=== PATIENT | female | born 1955 | race African-American/Black ===

== ENCOUNTER 2016-11-09 05:44 | Inpatient (IN) | payer MEDICARE ==
[~2016-11-09] VITALS: Ht 172.7 cm; Wt 80.0 kg
[2016-11-09] VITALS (16 sets, daily range): BP systolic 18–178; BP diastolic 68–90; Ht 172.7 cm; Wt 80.0 kg
[~2016-11-09 05:44] MED LIST: ACETAMINOPHEN500 M1 PO; CIPRO500 MG PO; LANTUS SOL100 UNIT/1 SQ; LISINOPRIL10 MG PO; NEURONTIN600 MG PO; NORCO 5/325 TAB1 TA1 PO; NOVOLIN R100 U/ML SC; ZOCOR20 MG PO; eye drops
[2016-11-09 06:18] LABS: HEMATOCRIT 37.3 % (36.0-48.0); HEMOGLOBIN 11.2 g/dL (12-16); MCH 27.9 pg (26.0-34.0); MCV 92.8 fL (80.0-100.0); MEAN PLATELET VOLUME 11.9 fL (7.4-10.4); PLATELET COUNT 266 10x3/uL (130-400); RBC 4.02 10x6/uL (4.00-5.40); WBC 28.2 10x3/uL (4.8-10.8)
[2016-11-09 06:34] LABS: ANION GAP 40.9 mmol/L (8-16); BILIRUBIN - TOTAL 0.5 mg/dL (0.2-1.3); CREATININE - SERUM 2.6 mg/dL (0.6-1.3); POTASSIUM - SERUM 4.9 mmol/L (3.5-5.1); PROTEIN - SERUM 6.8 g/dL (6.4-8.2)
[2016-11-09 06:38] LABS: LYMPHOCYTES 8 % (15-50); MONOCYTES 2 % (2-11); NEUTROPHILS 74 % (40-80); PLATELET ESTIMATE NORMAL
[2016-11-09 07:20] LABS: APPEARANCE CLOUDY (CLEAR); BILIRUBIN NEGATIVE (NEGATIVE); COLOR STRAW (YELLOW); GLUCOSE 1000 mg/dL (NEGATIVE); KETONE LARGE mg/dL (NEGATIVE); LEUKOCYTE ESTERASE NEGATIVE (NEGATIVE); NITRITE NEGATIVE (NEGATIVE); PROTEIN 2+ mg/dL (NEGATIVE); SPECIFIC GRAVITY 1.015 (1.005-1.020); UROBILINOGEN NORMAL (NORMAL)
[2016-11-09 07:22] LABS: BACTERIA MODERATE /hpf (NONE SEEN); EPITHELIAL CELLS 0-5 /hpf (0-5); RED CELLS - URINE 0-5 /hpf (0-5); UDS - AMPHET NEGATIVE QUAL (NEGATIVE); UDS - BARB NEGATIVE QUAL (NEGATIVE); UDS - BENZO NEGATIVE QUAL (NEGATIVE); UDS - COCAINE NEGATIVE QUAL (NEGATIVE); UDS - METH NEGATIVE QUAL (NEGATIVE); UDS - OPIATE NEGATIVE QUAL (NEGATIVE); UDS - PCP NEGATIVE QUAL (NEGATIVE); UDS - THC NEGATIVE QUAL (NEGATIVE); WHITE CELLS - URINE 0-5 /hpf (0-5); YEAST >1+ /hpf (NONE SEEN)
--- NOTE | 2016-11-09 09:09 | NUR ---
rec'ed report from PRINCIPAL ARCHITECTArnie - awaiting transfer.
--- NOTE | 2016-11-09 09:40 | NUR ---
ACCU CHECK NOT ABLE TO ASSESS BLOOD SUGAR - ENTERED STAT LAB FOR GLUCOSE - 1000 [facility] 10:23 LAB REPORTS CRITICAL LAB AT 746 - TITRATED INSULIN PER POLICY.
--- NOTE | 2016-11-09 10:00 | NUR ---
Yusuf SHEIKH AND TOM AT BEDSIDE FOR ASSESSMENT - DR. SHEIKH ORDERED IV ATX, P04/BMP/MG AT 16:00 - ENTERED PER REQUEST.
--- NOTE | 2016-11-09 11:00 | NUR ---
FAMILY AT BEDSIDE - ANSWERED ALL QUESTIONS FOR ADMISSION. CPOC
--- NOTE | 2016-11-09 11:28 | NUR ---
DR. SHEIKH CHANGED IV FLUIDS TO 1/2 NS AT 200ML/HR. CPOC
--- NOTE | 2016-11-09 12:00 | NUR ---
ACCU CHECK COMPLETED -- TITRATED INSULIN PER POLICY CPOC
--- NOTE | 2016-11-09 12:00 | NUR ---
FAMILY AT BEDSIDE - CPOC
--- NOTE | 2016-11-09 13:00 | NUR ---
ACCU CHECK COMPLETED - TITRATED INSULIN PER POLICY - SEE FLOW SHEET - CPOC
[2016-11-09 13:08] LABS: CREATININE - URINE 27.3 mg/dL (30-125); PROTEIN - URINE 136.8 mg/dL (0.0-11.9)
[2016-11-09 13:12] LABS: CALCIUM 9.9 mg/dL (8.5-10.1); CREATININE - SERUM 2.5 mg/dL (0.6-1.3); MAGNESIUM - SERUM 2.9 mg/dL (1.8-2.4); PHOSPHOROUS 3.6 mg/dL (2.5-4.9)
[2016-11-09 13:14] LABS: ANION GAP 32.7 mmol/L (8-16); CARBON DIOXIDE 9.2 mmol/L (21.0-32.0); POTASSIUM - SERUM 3.9 mmol/L (3.5-5.1)
[2016-11-09 13:59] LABS: ERYTHROCYTE SEDIMENTATION RATE 110 mm/hr (0-30)
--- NOTE | 2016-11-09 14:38 | NUR ---
DRY BROWN LIQUID IN PT'S MOUTH - CLEANED - PT DENIED NAUSEA OR VOMITING - ACCU CHECK AT 475 - NO CHANGE TO TITRATE OF INSULIN. CPOC
--- NOTE | 2016-11-09 15:15 | NUR ---
ASSESSMENT COMPLETE - ACCU CHECK COMPLETED - TITRATED INSULIN - SEE FLOW SHEET CPOC
--- NOTE | 2016-11-09 16:00 | NUR ---
i&O COMPLETED - SEE FLOW SHEET - PT RESTING - GLUCOSE AT 373 PER ABG - NO TITRATION CHANGES - CPOC
--- NOTE | 2016-11-09 17:00 | NUR ---
ACCU CHECK COMPLETE TITRATED INSULIN PER POLICY - CPOC
--- NOTE | 2016-11-09 18:00 | NUR ---
ACCU CHECK COMPLETE - TITRATE INSULIN PER POLICY
--- NOTE | 2016-11-09 19:00 | NUR ---
SHIFT ASSESSMENT COMPLETE. PATIENT RESTING IN BED, VERY LETHARGIC. CONFUSED TO PLACE, TIME, AND SITUATION. ATTEMPTED TO REORIENT PATIENT. SPPECH GARBLED. PUPILS ERRLA, 3MM AND BRISK. LUNG SOUNDS CLEAR. RR EVEN AND NONLABORED, SHALLOW. O2 SAT 98%. S1S2 WITH RATE OF 98 ON MONITOR, NSR NOTED. BOWEL SOUNDS ACTIVE X4, NON DISTENDED, NONTENDER TO TOUCH. CARRASCO DRAINING CLEAR URINE TO GRAVITY. PIV IN RFA, DRESSING C/D/I. SEE IV DRIPS FOR IV FLUIDS. VSS. WILL MONITOR.
--- NOTE | 2016-11-09 20:00 | NUR ---
SPOKE WITH DR SHEIKH, NEW ORDERS RECEIVED.
[2016-11-09 20:26] LABS: CALCIUM 9.8 mg/dL (8.5-10.1); CREATININE - SERUM 2.1 mg/dL (0.6-1.3); MAGNESIUM - SERUM 2.5 mg/dL (1.8-2.4); PHOSPHOROUS 1.7 mg/dL (2.5-4.9); POTASSIUM - SERUM 3.4 mmol/L (3.5-5.1)
[2016-11-09 20:27] LABS: CARBON DIOXIDE 20.4 mmol/L (21.0-32.0)
--- NOTE | 2016-11-09 20:45 | NUR ---
LABS REVIEWED AND DISCUSSED WITH DR SHEIKH OVER THE PHONE. NEW ORDERS RECEIVED.
--- NOTE | 2016-11-09 23:00 | NUR ---
REASSESSMENT COMPLETE, PATIENT STILL LETHARGIC, CONFUSED TO PLACE, DILIA, AND SITUATION. VSS, WILL MONITOR. SEE FLOWSHEET FOR DETAILS.
[2016-11-10] VITALS (24 sets, daily range): BP systolic 114–184; BP diastolic 62–94
--- NOTE | 2016-11-10 01:00 | NUR ---
PATIENT RESTING WITH EYES CLOSED. DENIES NEED AT THIS TIME.
--- NOTE | 2016-11-10 03:00 | NUR ---
REASSESSMENT COMPLETE, NO CHANGES. VSS.
--- NOTE | 2016-11-10 05:10 | NUR ---
BLOOD SUGAR 78, PAUSED INSULIN DRIP FOR ONE HOUR.
[2016-11-10 05:57] LABS: BASOPHILS 0.1 % (0-2); EOSINOPHILS 0 % (0-7); HEMATOCRIT 35.2 % (36.0-48.0); HEMOGLOBIN 11.8 g/dL (12-16); IMMATURE GRANULOCYTES 2.3 % (0-5); LYMPHOCYTES 11.1 % (15-50); MCH 28.1 pg (26.0-34.0); MCHC 33.5 g/dL (31.0-37.0); MCV 83.8 fL (80.0-100.0); MEAN PLATELET VOLUME 10.7 fL (7.4-10.4); MONOCYTES 14.1 % (2-11); NEUTROPHILS 72.4 % (40-80); PLATELET COUNT 187 10x3/uL (130-400); RDW 13.7 % (11.5-14.5); WBC 21.4 10x3/uL (4.8-10.8)
[2016-11-10 06:43] LABS: ALBUMIN 1.7 g/dL (3.4-5.0); ALKALINE PHOSPHATASE 151 U/L (46-116); ALT (SGPT) 11 U/L (10-68); BILIRUBIN - TOTAL 0.18 mg/dL (0.2-1.3); CALCIUM 9.7 mg/dL (8.5-10.1); CARBON DIOXIDE 20.1 mmol/L (21.0-32.0); CKMB 1.7 U/L (0.0-3.6); CREATINE KINASE 280 UL (21-215); CREATININE - SERUM 1.8 mg/dL (0.6-1.3); MAGNESIUM - SERUM 2.1 mg/dL (1.8-2.4); POTASSIUM - SERUM 3.2 mmol/L (3.5-5.1); PROTEIN - SERUM 6.5 g/dL (6.4-8.2); SODIUM 151 mmol/L (136-145); UREA NITROGEN 38 mg/dL (7-18); eGFR NON AFRICAN AMERICAN 30 mL/min (90-120)
[2016-11-10 06:44] LABS: BILIRUBIN - DIRECT 0.03 mg/dL (0.00-0.30); BILIRUBIN - INDIRECT 0.15 mg/dL (0.00-1.00); CALC OSMOLALITY 307 mosm/kg (275-300); CHLORIDE - SERUM 117 mmol/L (98-107); GLUCOSE 78 mg/dL (74-106); PHOSPHOROUS 1.4 mg/dL (2.5-4.9); TROPONIN-I < 0.017 ng/mL (0.000-0.060)
--- NOTE | 2016-11-10 07:21 | NUR ---
SPOKE WITH DR SHEIKH, NEW ORDERS RECEIVED
--- NOTE | 2016-11-10 08:04 | NUR ---
BLOOD GLUCOSE CHECKED AT THIS TIME AND WAS NOTED AT 160. NOTED THE BLOOD SUGAR CHECK AT 0700 WAS 110. SPOKE WITH RENAL CUSHION COVER INSPECTOR TO SEE WHAT SETTINGS NEEDED TO BE PERFORMED, NOTED NO CHANGE AT THIS HOUR, TO SEE WHAT BLOOD SUGAR LEVEL IS IN ONE HOUR AND THEN NOTIFY OF THAT LEVEL FOR FURTHER ORDERS. WILL CONTINUE PLAN OF CARE.
--- NOTE | 2016-11-10 10:29 | NUR ---
PT GIVEN SIPS OF WATER, NO S/S ASPIRATION NOTED. NO ACUTE DISTRESS NOTED. WILL CONTINUE PLAN OF CARE.
--- NOTE | 2016-11-10 12:28 | NUR ---
UP IN BED AWAKE AT THIS TIME. DENIES ANY NEEDS. NO ACUTE DISTRESS NOTED. TURNED Q2H. WILL CONTINUE PLAN OF CARE.
[2016-11-10 14:18] LABS: CALCIUM 8.7 mg/dL (8.5-10.1); CARBON DIOXIDE 19.9 mmol/L (21.0-32.0); CREATININE - SERUM 1.5 mg/dL (0.6-1.3); MAGNESIUM - SERUM 1.9 mg/dL (1.8-2.4); PHOSPHOROUS 3.4 mg/dL (2.5-4.9); POTASSIUM - SERUM 4.9 mmol/L (3.5-5.1)
--- NOTE | 2016-11-10 14:28 | NUR ---
CLEAN LINEN CHANGE PROVIDED AT THIS TIME. PT TURNS VIA MODERATE ASSIST. NO ACUTE DISTRESS NOTED. PT DENIES ANY NEEDS. WILL CONTINUE PLAN OF CARE.
--- NOTE | 2016-11-10 16:18 | NUR ---
RESTING IN BED AT THIS TIME WITH EYES CLOSED. RESPIRATIONS AT STEADY AND UNLABORED RATE. AWAKENS EASILY WHEN SPOKEN TO. NO ACUTE DISTRESS NOTED. CALL LIGHT IN REACH. WILL CONTINUE PLAN OF CARE.
--- NOTE | 2016-11-10 19:00 | NUR ---
Assessment complete. See flowsheet. Pt awake upon entrance into room with VSS. Pt lethargic but following conversation and answering all questions appropriately. Pt moving upper extremities with 3/5 strength and lower extremities with 2/5 strength. No edema noted. Pupils size 3 bilaterally ERRLA. Pt respirations shallow and unlabored. O2 RA. SPO2 98%. Lung sounds clear to all mark with diminished lower lobes. HR SR with S1S2 auscultated. All peripheral pulses +2 with capillary refill <3 seconds. Pt right forearm PIV site CDI; no s/s infection or infiltration with D5W @ 200cc/hr. ABdomen soft with BS hypoactive to all quadrants. Garcia catheter secure retrieving cloudy, yellow urine. Pt comfortable in bed and denies repositioning. SCDs secure. Pt self-positioned to right side. HOB @ 30 degrees. Pt helped with sips of ice water. Arms and heels bridged. Pt denies pain at this time. Call light and bedside table remain within pt reach. CPOC.
--- NOTE | 2016-11-10 21:00 | NUR ---
[place] tray and sugar free pudding provided per pt request.
--- NOTE | 2016-11-10 21:03 | NUR ---
paged regarding elevated FSBS readings
--- NOTE | 2016-11-10 21:12 | NUR ---
STAT BMP per . Will decreased D5W IVF to 75cc/hr per order.
[2016-11-10 21:51] LABS: CALCIUM 8.5 mg/dL (8.5-10.1); CARBON DIOXIDE 19.9 mmol/L (21.0-32.0); CREATININE - SERUM 1.3 mg/dL (0.6-1.3)
[2016-11-10 21:58] LABS: POTASSIUM - SERUM 3.9 mmol/L (3.5-5.1)
--- NOTE | 2016-11-10 22:10 | NUR ---
notified of BMP results. IVF changed to D51/2NS @ 75cc/hr per order. Will check serum ketones in AM. FSBS check frequency changed to Q2hr.
--- NOTE | 2016-11-10 23:00 | NUR ---
Reassessment complete. See flowsheet. Pt awake and helped to reposition to back with HOB @ 30 degrees. Pt continues to follow conversation and is oriented to person and place. Pt reoriented to time and situation. Pupils size 3 bilaterally ERRLA. O2 RA. Lung sounds clear to all mark with diminished lower lobes. PIV site CDI; no s/s infection or infiltration with D51/2NS infusing @ 75cc/hr. HR remains SR with S1S2 auscultated. All peripheral pulses +2 with capillary refill <3 seconds. BS present to all quadrants. Garcia catheter remains secure retrieving clear/yellow urine. Pt denies pain at this time. SCDs remain secure. Pt provided with fresh diet soda per request. Call light and bedside table remain within pt reach. CPOC.
[2016-11-11] VITALS (24 sets, daily range): BP systolic 146–181; BP diastolic 73–100
--- NOTE | 2016-11-11 01:00 | NUR ---
Pt awake with television on. Room cooled per request. Pt denies further needs at this time. No changes to note. CPOC.
--- NOTE | 2016-11-11 03:00 | NUR ---
Reassessment complete. See flowsheet. Pt resting and awakens to verbal stimulation and oriented x4 and following all conversation. O2 RA. Respirations unlabored. Lung sounds clear to all mark with diminished lower lobes. HR SR with S1S2 auscultated. All peripheral pulses +2 with capillary refill <3 seconds. Right forearm PIV site CDI; no s/s infection or infiltration with D51/2NS infusing @ 75cc/hr. BS +. Garcia remains secure. Pt self-positioned to right side and resting with HOB @ 20 degrees. Pain denied. SCDs secure. BS check completed 223 mg/dL. Pt denies further needs at this time. Call light and bedside table remain within reach. CPOC.
[2016-11-11 03:52] LABS: BASOPHILS 0.1 % (0-2); EOSINOPHILS 0.1 % (0-7); HEMATOCRIT 33.9 % (36.0-48.0); HEMOGLOBIN 11.4 g/dL (12-16); IMMATURE GRANULOCYTES 1.4 % (0-5); LYMPHOCYTES 15.9 % (15-50); MCH 28.1 pg (26.0-34.0); MCHC 33.6 g/dL (31.0-37.0); MCV 83.7 fL (80.0-100.0); MONOCYTES 6.9 % (2-11); NEUTROPHILS 75.6 % (40-80); PLATELET COUNT 155 10x3/uL (130-400); RBC 4.05 10x6/uL (4.00-5.40); WBC 16.3 10x3/uL (4.8-10.8)
[2016-11-11 04:07] LABS: ANION GAP 15.8 mmol/L (8-16); CALCIUM 8.6 mg/dL (8.5-10.1); CARBON DIOXIDE 18.8 mmol/L (21.0-32.0); CREATININE - SERUM 1.2 mg/dL (0.6-1.3); MAGNESIUM - SERUM 1.7 mg/dL (1.8-2.4); POTASSIUM - SERUM 3.6 mmol/L (3.5-5.1)
[2016-11-11 04:08] LABS: PHOSPHOROUS 1.4 mg/dL (2.5-4.9)
--- NOTE | 2016-11-11 05:00 | NUR ---
Pt resting with VSS. NO s/s pain or distress and allowed to continue resting undisturbed. Call light and bedside table remain within reach. CPOC.
--- NOTE | 2016-11-11 05:39 | NUR ---
paged regarding PO4- 1.4 this AM
--- NOTE | 2016-11-11 06:01 | NUR ---
Dr. Kearns repaged
--- NOTE | 2016-11-11 06:08 | NUR ---
Labs relayed. Give KPO4 15mmol over 4hrs per Dr. Kearns's telephone order. CPOC.
--- NOTE | 2016-11-11 07:45 | NUR ---
PATIENT DENIES ANY NEEDS OR PAIN. IN ROOM TO DO ASSESSMENT.
--- NOTE | 2016-11-11 09:15 | NUR ---
PATIENT HAS SIGNIFICANT OTHER IN ROOM VISITING, NO DISTRESS NOTED, AND PATIENT DENIES ANY NEEDS AT THIS TIME.
--- NOTE | 2016-11-11 09:37 | NUR ---
Nutrition follow-up: Diet advanced to ADA consistent CHO Labs reviewed Wt: 137# RDN following.
--- NOTE | 2016-11-11 10:29 | NUR ---
* Is the patient Alert and Oriented? Yes 0 * How many steps to enter\\exit or inside your home? 0 0 * PCP No Local PCP See's a "Computing Systems Mechanic" in [place] * [facility] [address] * Preadmission Environment Home with Family 0 * ADLs Independent 0 * Equipment Glucometer 0 * List name and contact numbers for known caregivers / representatives who currently or will assist patient after discharge: Boyfriend - Adryan Trimble [phone] or [phone] (cell) Sister - Samanta Marie [phone] or [phone] * Can the patient safely return to the preadmission environment? Yes 0 * Has this patient been hospitalized within the prior 30 days at any hospital? No 11/11/2016 10:26 DCP: Discharge Planning Patient Name: DAVIDSON ERNST Admission Status: ER Accout number: [id number] Admission Date: 11-09-2016 : 1955 Admission Diagnosis: Attending: DALLIN Current LOS: 2 Anticipated DC Date: 11-13-2016 Planned Disposition: Home Primary Insurance: [facility] Discharge Planning Comments: CM met with patient to assess dc plans/needs. Patient states she lives a home with her boyfriend, Adryan. She reports she is independent with all ADL's & IADL's. She does not use any assistive devices for mobility & does not have home health services. She does have a glucometer. At dc, she plans to return home with her boyfriend. She denies any needs at this time, but may benefit from home health services. Case Management will follow. Corn Husker: Susan Garcia
--- NOTE | 2016-11-11 12:00 | NUR ---
CONTACTED DR. LIRA OFFICE, SHE IS IN THE HOSPITAL WILL CONTACT HER HERE.
--- NOTE | 2016-11-11 12:15 | NUR ---
DR. LIRA CONTACTED ON MEDICAL FLOOR AWAITING CALL BACK.
--- NOTE | 2016-11-11 12:48 | NUR ---
DR. LIRA NOTIFIED OF PATIENT BLOOD SUGAR. NEW ORDERS RECEIVED AND NOTED.
--- NOTE | 2016-11-11 14:03 | NUR ---
PATIENT BATHED WITH COMPLETE LINEN CHANGE DONE. PATIENT WAS INCONITNENT OF URINE AROUND CARRASOC. CARRASCO CARE COMPLETED. PATIENT HAS SMALL WOUND AREA NOTED IN L BUTTOCKS NEAR LABIA, AND LABIA IS FIRM AND PAINFUL WHEN TOUCHED.
--- NOTE | 2016-11-11 14:56 | NUR ---
WOUND CARE CONSULTED FOR ULCERATION. PATIENT REPOSISTIONED SELF WITH MINIMAL ASSIST PILLOWS USED FOR COMFORT.
--- NOTE | 2016-11-11 17:05 | NUR ---
PATIENT SLEEPING AROUSES EASILY TO VERBAL STIMULI. PATIENT REPOSISTIONED AND DENISSE/CARRASCO CARE COMPLETED. PATIENT IS STILL HAVE URINE LEAKAGE AROUND CARRASCO. PATIENT DENIES ANY NEEDS OR PAIN AT THIS TIME.
--- NOTE | 2016-11-11 19:00 | NUR ---
Assessment complete. See flowsheet. Pt awake upon entrance into room with VSS. Pt alert and oriented x4 and following all conversation with softly spoken words noted. Pupils size 3 bilaterally ERRLA. Pt moving upper extremities with 4/5 strength and lower extremities with 3/5 strength. NO edema noted. Pt respirations unlabored. O2 RA. Lung sounds CTA. HR SR with S1S2 auscultated. All peripheral pulses +2 with capillary refill <3 seconds. Right forearm PIV site 20g CDI; no s/s infection or infiltration with NS infusing @ 125cc/hr. Abdomen soft with BS present to all quadrants. Nausea denied. Left labia swollen/edematous with ulceration noted to posterior left labia. Garcia secure retrieving clear/yellow urine. Temp 100.5F orally. Pt self-positioned to back with HOB @ 30 degrees. Arms and heels bridged. SCDs secure bilaterally. Pt denies pain. Holly juice provided per request. Call light and bedside table within reach. CPOC.
--- NOTE | 2016-11-11 21:00 | NUR ---
Pt resting quietly with VSS. NO visitors at this time. NO s/s pain or distress. Call light and bedside table remain within reach. CPOC.
--- NOTE | 2016-11-11 23:00 | NUR ---
Reassessment complete. See flowsheet. Pt resting to left side. VSS. Pt awakens easily to verbal stimulation with no neuro changes to note. O2 RA. Respirations shallow and unlabored. Lung sounds CTA. HR ST with S1S2 auscultated. All peripheral pulses remain +2 with capillary refill <3 seconds. PIV site CDI with NO IVF changes to note from previous assessment. Abdomen soft with BS present to all quadrants. Pt denies pain. Garcia remains secure retrieving clear/yellow urine. Pt continues to self-position for comfort and denies further needs at this time. Linens clean/dry. No other changes to note. Call light and bedside table remain within pt reach. Temp 98.3F temporally. CPOC.
[2016-11-12] VITALS (13 sets, daily range): BP systolic 138–176; BP diastolic 78–98
--- NOTE | 2016-11-12 01:00 | NUR ---
Pt resting with VSS. NO s/s pain or distress. Call light and bedside table remain within pt reach. CPOC.
--- NOTE | 2016-11-12 03:00 | NUR ---
Reassessment complete. See flowsheet. Pt resting on back with HOB @ 30 degrees no s/s pain or distress and awakens easily to verbal stimulation with no neuro changes to note from previous assessment and receiving O2 via room air. Respirations shallow and unlabored. Lung sounds CTA. HR ST with S1S2 auscultated. All peripheral pulses remain +2 with capillary refill <3 seconds. PIV site CDI with NO IVF changes to note from previous assessment. Abdomen soft with BS present to all quadrants. Pt denies pain. Garcia remains secure retrieving clear/yellow urine. Pt continues to self-position for comfort and denies further needs at this time. Linens clean/dry. No other changes to note. Call light and bedside table remain within pt reach. CPOC.
[2016-11-12 03:59] LABS: BASOPHILS 0.1 % (0-2); EOSINOPHILS 0.2 % (0-7); HEMOGLOBIN 11.8 g/dL (12-16); IMMATURE GRANULOCYTES 0.7 % (0-5); LYMPHOCYTES 15.7 % (15-50); MCH 28.1 pg (26.0-34.0); MCHC 33.7 g/dL (31.0-37.0); MCV 83.3 fL (80.0-100.0); MEAN PLATELET VOLUME 10.4 fL (7.4-10.4); NEUTROPHILS 79.3 % (40-80); PLATELET COUNT 133 10x3/uL (130-400); WBC 18.1 10x3/uL (4.8-10.8)
[2016-11-12 04:16] LABS: CALC OSMOLALITY 292 mosm/kg (275-300); CALCIUM 8.5 mg/dL (8.5-10.1); CHLORIDE - SERUM 112 mmol/L (98-107); CREATININE - SERUM 1.1 mg/dL (0.6-1.3); GLUCOSE 230 mg/dL (74-106); MAGNESIUM - SERUM 1.7 mg/dL (1.8-2.4); PHOSPHOROUS 1.7 mg/dL (2.5-4.9); POTASSIUM - SERUM 3.8 mmol/L (3.5-5.1); SODIUM 143 mmol/L (136-145); UREA NITROGEN 16 mg/dL (7-18); eGFR NON AFRICAN AMERICAN 53 mL/min (90-120)
[2016-11-12 04:33] LABS: KETONE - SERUM SMALL mg/dL (NEGATIVE)
--- NOTE | 2016-11-12 05:00 | NUR ---
Pt resting quietly with VSS and awakens with entrance. Room warmed per pt request. NO further needs at this time. Call light and bedside table remain within reach. CPOC.
[2016-11-12 07:18] LABS: FOLATE (FOLIC ACID) - SERUM 3.4 ng/mL (>3.0)
--- NOTE | 2016-11-12 07:43 | NUR ---
PATIENT SLEEPING AROUSES EASILY TO VERBAL STIMULI. PATIENT DENIES ANY NEEDS OR PAIN. LUNGS WITH FAINT BIBASILAR CRACKLES AUSC, RESPIRATIONS UNLABORED AND EVEN. HEART TONES RRR AUSC, ALL SMC'S ARE INTACT. ABDOMEN SOFT AND NON-TENDER TO PALPATION, BS PRESENT X4 QUADS. SKIN WARM, DRY, AND PINK UNDERTONES NOTED. CAP REFILL <3SECS. IV IN R FA WITHOUT REDNESS OR EDEMA NOTED INFUSING NS AT 125ML/HR. PATIENT DID NOT HAVE SCD'S ON SHE ALLOWED ME TO REPLACE THEM. ENCOURAGED PATIENT TO WEAR THEM TO PREVENT DVT'S. PATIENT STATES THEY FEEL GOOD ON HER LEGS NOW. CALL LIGHT WITHIN REACH, BED IS IN LOW POSISTION.
--- NOTE | 2016-11-12 09:31 | NUR ---
DR. LIRA NOTIFIED OF HUMILIN SLIDING SCALE BEING DC'D, AND SHE WILL REORDER IT AT THIS TIME.
--- NOTE | 2016-11-12 10:25 | NUR ---
PT HERE TO GET PATIENT UP TO CHAIR. PATIENT TOLERATED ACTIVITY WELL WITH MINIMAL ASSIST NEEDED. PATIENT IS SLIGHTLY WEAK.
--- NOTE | 2016-11-12 11:24 | NUR ---
KISHOR CRESPO FROM WOUND CARE HERE IN TO SEE PATIENT.
--- NOTE | 2016-11-12 11:27 | NUR ---
Wound Care Consult: Pt has an open wound on labia (left side) It is approx 2cm x 2cm with white/alfaro wound bed. Edema is noted from gluteal fold up to pubis. The skin is very firm to the touch. Pt reports it is painful. She says she noticed it being sore "a week or so ago". Recommend applying silvadene cream to open wound. Also recommend a surgical consult. Wound care will continue monitoring.
--- NOTE | 2016-11-12 17:52 | NUR ---
1245 DR LIRA PAGED AND INFORMED OF WOUND CARE NURSE SUGGESTION TO CONSULT EITHER A SURGEON OR TITLE SPECIALIST TO EXAMINE AND TREAT THE LABIAL SWELLING...DR COULTER SURGEON STRAWHAT SIZER NOTIFIED AND HE STATED THAT SINCE IT IS OF A FEMALE TITLE SPECIALIST NATURE HE WOULD BE MORE COMFORTABLE HAVING TITLE SPECIALIST EXAMINE AND TREAT THE AREA.. 1300 DR COBIAN PAGELilo AND INFORMED OF CONSULT.. 1500 FAMILY IN TO SEE PT AND UPDATE IS GIVEN.. 1600 DR COBIAN CALLED AND STATED TO HAVE PT TRANSPORTED TO [facility]IA WHEELCHAIR TO HAVE A PELVIC EXAM DONE AT THIS TIME.. 1645 PT BACK IN THE ICU VIA WHEEL CHAIR. TOLERATED WELL . .CARRASCO CATH DCd BY DR COBIAN FOR PURPOSE OF VAG EXAM.. RE INSERTED ON ARRIVAL BACK TO THE ICU , PT STATES THAT DUE TO THE NATURE OF THE SWELLING AND SORE AREA IN THE VAG AREA SHE WANTS THE CARRASCO REPLACED.. PT SENT BACK TO THE ICU WITH SITZ BOTTLE FOR GENTLE FLUSHING OF PERINEAL AREA... PT ASSISTED BACK TO BED AND DIET SERVED..FEEDING SELF.. 1730 DR COBIAN CALLED FOR PAIN CONTROL AND SHE DEFERED IT TO RENAL AND REQUEST THAT DIFUCAN BE INCREASED TO 200 MG IF OK WITH RENAL.. 1745 DR FRIED CALLED AND ORDERS FOR DIFLUCAN RECIEVED AND PAIN MEDS.. 1800 WITHOUT VISITORS AT THIS TIME.. 1005 DIET EATEN
--- NOTE | 2016-11-12 19:35 | NUR ---
REPORT REC'D AND CARE ASSUMED, REC'D PT AWAKE, ALERT, ORIENTED, RESTING QUIETLY IN BED, LEFT FOREARM PIV WITH NS @ 125CC/HR, CM-ST @ 106, BP ELEVATED, GENERALIZED WEAKNESS NOTED, EDEMA NOTED TO LEFT LABIA EXTENDING DOWN TO BUTTOCK, SORE NOTED ON PERINEAL AREA, CARRASCO PATENT DRAINING CLEAR YELLOW URINE, BILAT SCD'S INTACT, PP BY DOPPLER, LOWER EXT'S ELEVATED ON PILLOWS, PT DENIES NEEDS, SR UP X 2, CALL LIGHT IN REACH.
--- NOTE | 2016-11-12 19:50 | NUR ---
MILK PROVIDED ON REQUEST, NO FURTHER NEEDS VOICED
--- NOTE | 2016-11-12 21:20 | NUR ---
EVENING MEDS GIVEN WITH SIPS OF WATER, PT PLACED ON BEDPAN AND SITZ BATH PROVIDED WITH BETADINE AND WATER IRRIGATION TO LABIA AND PERINEAL AREA, PT TOLERATED WELL, PATTED DRY AND SILVADENE APPLIED TO INFLAMMED AREAS ORDERED, BEDPAN REMOVED AND PT ASSISTED TO POSITION FOR COMFORT
--- NOTE | 2016-11-12 21:30 | NUR ---
PT REQUESTING SOMETHING FOR PAIN, [place] 10 PROVIDED FOR PAIN RATING "6" ON 0-10 PAIN SCALE, WILL MONITOR CLOSELY FOR CHANGES.
--- NOTE | 2016-11-12 23:55 | NUR ---
REASSESSMENT COMPLETED, FSBS 166, 8 UNITS REGULAR INSULIN GIVEN SQ TO LEFT ARM, PT RESTING EYES CLOSED, VSS.
[2016-11-13] VITALS: BP 119/64
--- NOTE | 2016-11-13 03:45 | NUR ---
LAB AT FOR AM LAB DRAW
[2016-11-13 03:55] LABS: BASOPHILS 0.1 % (0-2); EOSINOPHILS 0.8 % (0-7); HEMATOCRIT 29.9 % (36.0-48.0); HEMOGLOBIN 9.7 g/dL (12-16); IMMATURE GRANULOCYTES 0.5 % (0-5); LYMPHOCYTES 22.3 % (15-50); MCH 27.5 pg (26.0-34.0); MCHC 32.4 g/dL (31.0-37.0); MCV 84.7 fL (80.0-100.0); MEAN PLATELET VOLUME 11.7 fL (7.4-10.4); MONOCYTES 4.8 % (2-11); NEUTROPHILS 71.5 % (40-80); PLATELET COUNT 105 10x3/uL (130-400); RBC 3.53 10x6/uL (4.00-5.40); RDW 14.3 % (11.5-14.5); WBC 18.4 10x3/uL (4.8-10.8)
[2016-11-13 04:00] VITALS: BP 130/64
[2016-11-13 04:01] LABS: ANION GAP 9.4 mmol/L (8-16); CALCIUM 7.9 mg/dL (8.5-10.1); CARBON DIOXIDE 23.1 mmol/L (21.0-32.0); MAGNESIUM - SERUM 1.6 mg/dL (1.8-2.4); POTASSIUM - SERUM 3.5 mmol/L (3.5-5.1)
[2016-11-13 04:11] LABS: PHOSPHOROUS 2.3 mg/dL (2.5-4.9)
--- NOTE | 2016-11-13 07:00 | NUR ---
PT IN BED WATCHING TV WITH 0 S/SX OF DISTRESS/DISCOMFORT NOTED. BREATHING NORMAL AND UNLABORED. FC IN PLACE YELLOW CLEAR URINE. 98 DEGREES. 11 155/73 98% RA 101 SINUS TACH. LEFT LABIA SWOLLEN AND HAS AN ABCESS WHICH IS BEING TREATED. DENIES PAIN AT THIS TIME. RIGHT FOREARM HAS PIV WITH NS AT 125. ARM SWOLLEN AND FIRM. FLUIDS STOPPED AND IV DC'D. PT DENIES PAIN. FSBS TAKEN WITH RESULTS OF 68 AND PT NOT SYMPTOMATIC. BREAKFAST TRAY GIVEN AND PT EATING. WILL RECHECK FSBS. CALL LIGHT IN REACH.
[2016-11-13 08:00] VITALS: BP 155/73
--- NOTE | 2016-11-13 09:19 | NUR ---
FSBS 96. DENIES PAIN. RIGHT ARM SWELLING DECREASING. DENIES PAIN.
--- NOTE | 2016-11-13 09:37 | NUR ---
VASCULAR NURSE CONSULTED FOR MIDLINE PLACEMENT. AND DOPPLER TO RUE TO RO DVT.
--- NOTE | 2016-11-13 09:52 | NUR ---
PT REQUESTED SOMETHING TO EAT AND DRINK. ORANGE JUICE, WATER AND PEANUT BUTTER CRACKERS GIVEN.
--- NOTE | 2016-11-13 10:45 | NUR ---
VASCULAR NURSE PLACED MIDLINE TO LEFT UPPER ARM.
--- NOTE | 2016-11-13 10:53 | NUR ---
Nutrition follow-up: Diet: ADA consistent CHO PO intake 25-50% of meals labs reviewed Glucose readings all < 200 mg/dl Wt: 137# RDN following.
[2016-11-13 12:00] VITALS: BP 165/111
--- NOTE | 2016-11-13 12:00 | NUR ---
DOPPLER TECH AT BED SIDE
--- NOTE | 2016-11-13 13:15 | NUR ---
REPORT RECEIVED FROM CURRENT PATIENT NURSE. WILL CONTINUE WITH PATIENT CARE FOR REST OF DAY. PT AWAKE, ALERT AND ORIENTED. S1S2. LUNG SOUNDS CLEAR THROUGH OUT. NO COUGH NOTED AT THIS TIME. BOWEL SOUNDS ACTIVE X 4. MUCOUS MEMBRANES MOIST. SKIN WARM, DRY. SCLY ON THE LOWER EXTREMITIES. R-ARM SWOLLEN DUE TO IV INFILTRATION. RIGHT AND LEFT RADIAL PULSE PALPAPABLE. PEDAL PULSES WEAK. L-MIDLINE PIV PATENT, DRESSING ADHERED TO SKIN. NO REDNESS OR SWELLING NOTED. CARRASCO IN PLACE SECURED TO RIGHT THIGH. CLOUDY YELLOW URINE. LEFT LABIA/VULVA SWOLLEN AND FIRM. ABSESS UNDER THE LEFT LABIA. SCD'S ON BOTH LEGS. BED LOW POSITION, CALL LIGH IN REACH, BEDSIDE TABLE IN REACH. NO OTHER NEEDS AT THIS TIME.
--- NOTE | 2016-11-13 14:10 | NUR ---
SPOKE WITH SISTER(PAOLO GORDON). GAVE UPDATED ON PT'S CONDITION.
--- NOTE | 2016-11-13 16:09 | NUR ---
BLOOD SUGAR 230. 12 UNITS OF HUMULIN R GIVEN PER SLIDING SCALE. APPLE JUICE GIVEN PER PATIENT REQUEST. NO OTHER NEEDS AT THIS TIME.
[2016-11-13 16:26] VITALS: BP 173/84
--- NOTE | 2016-11-13 18:15 | NUR ---
REPORTS PAIN /. LABIA/VULVA AREA. NORCO GIVEN FOR PAIN PER ORDERS.
[2016-11-13 19:00] VITALS: BP 139/67
--- NOTE | 2016-11-13 19:25 | NUR ---
REPORT REC'D AND CARE ASSUMED, PT RESTING QUIETLY ON ROOM AIR WATCHING TV, TEMP 102.3, BLOOD CULTURES DRAWN ON THE 1ST, LEFT UPPER ARM MIDLINE CATHETER DRSG CDI WITH NS @ 125CC/HR, LEFT LABIA EDEMATOUS, RED, FIRM TO TOUCH EXTENDING DOWN TO PERINEUM AND BUTTOCK, CARRASCO PATENT DRAINING CLEAR YELLOW URINE, GENERALIZED EDEMA TO LOWER EXT'S, BILAT SCD'S INTACT, PT DENIES PAIN OR OR NEEDS, SR UP X 2, BED IN LOW POSITION, CALL LIGHT IN REACH.
--- NOTE | 2016-11-13 20:45 | NUR ---
EVENING MEDS GIVEN, LEFT LABIA AND PERINIUM IRRIGATED WITH BETADINE SOLUTION AND WARM WATER, AREA PATTED DRY, SILVADENE CREAM APPLIED ORDERED, PT REPOSITIONED UP IN BED FOR COMFORT, PT DENIES FURTHER NEEDS, SR UP X 2, CALL LIGHT IN REACH
--- NOTE | 2016-11-13 21:30 | NUR ---
REPORT CALLED TO ROSIE IVERSON ON MED II
--- NOTE | 2016-11-13 21:30 | NUR ---
REPORT CALLED TO LIO VELEZ ON MED II
--- NOTE | 2016-11-13 21:44 | NUR ---
PT TRANSFERRED TO ROOM 2110, PT ASSISTED OVER TO BED X 3 ASSISTS, PT COMPLAINS OF DIFFICULTY WITH LEFT LEG, SR UP X 2, CALL LIGHT IN REACH.
--- NOTE | 2016-11-13 22:16 | NUR ---
RECEIVED FROM ICU,VIA WHEELCHAIR, PT HAS L. UPPER ARM MIDLINE- NS @125, SCD ARE ON , BED IS LOW, SRX2, BED ALARM IS ON, CALL LIGHT IN REACH, WILL CONTINUE PLAN OF CARE
[2016-11-14] VITALS: BP 163/85
--- NOTE | 2016-11-14 00:46 | NUR ---
BLOODSUGAR-136- NO COVERAGE NEEDED
--- NOTE | 2016-11-14 03:11 | NUR ---
COMPRESSOR OPERATOR PORTABLE AT BEDSIDE TO OBTAIN VITALS, CALL LIGHT IN REACH. WILL CONTINUE TO MONITOR.
[2016-11-14 04:00] VITALS: BP 156/83
--- NOTE | 2016-11-14 04:39 | NUR ---
[id number] 8UNIT OF JANIE Alfredo, WILL CONTINUE TO MONITOR
[2016-11-14 06:14] LABS: BASOPHILS 0.1 % (0-2); EOSINOPHILS 1.7 % (0-7); HEMATOCRIT 31.5 % (36.0-48.0); HEMOGLOBIN 10.1 g/dL (12-16); IMMATURE GRANULOCYTES 0.6 % (0-5); LYMPHOCYTES 16.9 % (15-50); MCH 27.8 pg (26.0-34.0); MCHC 32.1 g/dL (31.0-37.0); MEAN PLATELET VOLUME 11.4 fL (7.4-10.4); MONOCYTES 6.5 % (2-11); NEUTROPHILS 74.2 % (40-80); PLATELET COUNT 93 10x3/uL (130-400); RBC 3.63 10x6/uL (4.00-5.40); RDW 14.2 % (11.5-14.5)
[2016-11-14 06:36] LABS: MCV 86.8 fL (80.0-100.0)
[2016-11-14 06:38] LABS: ANION GAP 12.3 mmol/L (8-16); CALCIUM 7.8 mg/dL (8.5-10.1); CARBON DIOXIDE 21.3 mmol/L (21.0-32.0); CREATININE - SERUM 1.1 mg/dL (0.6-1.3); MAGNESIUM - SERUM 1.7 mg/dL (1.8-2.4); PHOSPHOROUS 2.2 mg/dL (2.5-4.9); POTASSIUM - SERUM 3.6 mmol/L (3.5-5.1)
[2016-11-14 07:32] LABS: PLATELET ESTIMATE DECREASED
[2016-11-14 08:15] VITALS: BP 157/82
[2016-11-14 12:14] LABS: SPE - A/G RATIO 0.6 (0.7-1.7); SPE - ALBUMIN 2.3 g/dL (2.9-4.4); SPE - ALPHA-1 GLOBULIN 0.4 g/dL (0.0-0.4); SPE - ALPHA-2 GLOBULIN 1.4 g/dL (0.4-1.0); SPE - BETA GLOBULIN 1.3 g/dL (0.7-1.3); SPE - GAMMA GLOBULIN 0.8 g/dL (0.4-1.8); SPE - M-SPIKE Not Observed g/dL (Not Observed); SPE - TOTAL PROTEIN 6.2 g/dL (6.0-8.5)
[2016-11-14 13:09] VITALS: BP 165/80
[2016-11-14 16:26] VITALS: BP 173/90
--- NOTE | 2016-11-14 18:27 | NUR ---
PATIENT CURRENTLY RESTING QUIETLY WITHOUT S/S OF DISTRESS. SHE HAS RESTED THROUGHOUT THE DAY WITHOUT COMPLAINTS. SHE IS ABLE TO REPOSITION SELF IN THE BED. CALL LIGHT IS WITHIN HER REACH. MONITORING.
[2016-11-14 19:00] VITALS: BP 171/79
--- NOTE | 2016-11-14 19:37 | NUR ---
RECEIVED REPORT, WILL ASSUME CARE OF PT, PT DENIES ANY NEEDS, BED IS LOW, SRX2, SCD ARE ON, CALL LIGHT IN REACH, WILL CONTINUE PLAN OF CARE
[2016-11-15] VITALS: BP 168/87
[2016-11-15 04:00] VITALS: BP 166/85
--- NOTE | 2016-11-15 04:22 | NUR ---
ASSESSMENT COMPLETE, SEE FLOWSHEET, PT SLEEPING, BED IS LOW, SRX2, BED ALARM ON, SCD ARE ON, CALL LIGHT IN REACH, WILL CONTINUE PLAN OF CARE
[2016-11-15 05:28] LABS: MAGNESIUM - SERUM 1.8 mg/dL (1.8-2.4); PHOSPHOROUS 1.9 mg/dL (2.5-4.9)
[2016-11-15 07:42] LABS: BASOPHILS 0.1 % (0-2); EOSINOPHILS 1.3 % (0-7); HEMATOCRIT 29.3 % (36.0-48.0); HEMOGLOBIN 9.3 g/dL (12-16); IMMATURE GRANULOCYTES 0.5 % (0-5); LYMPHOCYTES 22.9 % (15-50); MCH 27.6 pg (26.0-34.0); MCHC 31.7 g/dL (31.0-37.0); MCV 86.9 fL (80.0-100.0); MEAN PLATELET VOLUME 11.9 fL (7.4-10.4); MONOCYTES 8.3 % (2-11); NEUTROPHILS 66.9 % (40-80); PLATELET COUNT 121 10x3/uL (130-400); RBC 3.37 10x6/uL (4.00-5.40); WBC 15.4 10x3/uL (4.8-10.8)
[2016-11-15 07:47] LABS: ANION GAP 11.9 mmol/L (8-16); CALCIUM 7.6 mg/dL (8.5-10.1); CARBON DIOXIDE 23.9 mmol/L (21.0-32.0); CREATININE - SERUM 1.1 mg/dL (0.6-1.3); POTASSIUM - SERUM 3.8 mmol/L (3.5-5.1)
[2016-11-15 08:20] VITALS: BP 186/86
--- NOTE | 2016-11-15 09:58 | NUR ---
PATIENT RESTING QUIELTY WITHOUT NEEDS.
[2016-11-15 12:35] VITALS: BP 149/89
[2016-11-15] MEDS ORDERED: FLORAJEN3 CAPS460 MG PO (14:47)
[2016-11-15] MEDS ORDERED: MIRALAX17 GM PO (14:47)
[2016-11-15] MEDS ORDERED: DIFLUCAN200 MG PO (14:50)
[2016-11-15 15:06] VITALS: BP 139/70
--- NOTE | 2016-11-15 16:04 | NUR ---
Patient Name: DAVIDSON ERNST Encounter No: [id number] : 1955 Primary Insurance: [id number] Anticipated DC Date: 11-15-2016 Planned Disposition: Home DCP follow-up note: CM MET WITH PT IN ROOM TO DISCUSS DISCHARGE NEEDS AND PLANNING. CM DISCUSSED AVAILABILITY OF HOME HEALTH, REHAB SERVICES AND MEDICAL EQUIPMENT. PT ASKED FOR A WALKER, SHE HAS BEEN USING A CANE BUT REPORTS THAT SHE FEELS MORE STABLE ON A WALKER. PT DENIES NEED OF REHAB OR HOME HEALTH REPORTING HAVING FAMILY ASSISTANCE AT HOME. PT REPORTS HER SISTER TO TRANSPORT HOME AT DISCHARGE. TODAY. CM CALLED [facility], ADVISED THEY ARE NOT IN NETWORK WITH PT'S INSURANCE. CM CALLED [facility], SPOKE TO MARITZA AT [phone]; MARITZA WILL ARRANGE WALKER TO BE DELIVERED TO HOSPTIAL FOR DISCHARGE HOME TODAY. PT AND BEDSIDE NURSE NOTIFIED. PT TO DISCHARGE HOME WITH FAMILY; WALKER TO BE DELIVERED TO HOSPITAL ROOM FOR DISCHARGE HOME TODAY. Raman Aragon, CASE MANAGEMENT
--- NOTE | 2016-11-15 17:05 | NUR ---
PATEINT SITTING UP EATING HER SUPPER. MALE WATCH TECHNICIAN AT THE BEDISDE. SHE IS ANXIOUS TO GO HOME. HE STATES THAT "WE" HAVE A NICE COMFORTABLE PLACE FOR HER TO GO AND ARE READY FOR HER. HE WILL BE TAKING CARE OF HER. THEY UNDERSTAND THAT WE ARE WAITING FOR A WALKER TO BE DELIVERED.
--- NOTE | 2016-11-15 18:18 | NUR ---
SPOKE WITH DR. LIRA AND REPORTED TO HER THAT THE PATIENT IS UNABLE TO MAINTAIN HER SITTING POSITION ON THE BEDSIDE. REHAB EVAL ORDERED.
--- NOTE | 2016-11-15 18:25 | NUR ---
NOTIFIED NEGIN IVERSON ON [facility] REHAB UNIT OF HER CONSULT.
--- NOTE | 2016-11-15 18:28 | NUR ---
REHAB NOTE- THE PATIENT HAS [facility] INSURANCE AND WILL REQUIRE A PRE AUTH PRIOR TO AN ACUTE REHAB STAY. WILL NEED PT AND OT EVAL. WILL BEGIN PRE AUTH PROCESS ON FRIDAY. THANK YOU FOR THIS REFERRAL! NEGIN PARK RN CLINICAL LIAISON, [facility] REHAB
--- NOTE | 2016-11-15 18:29 | NUR ---
PATEINT BACK TO BED, DENIED NEEDS,.
[2016-11-15 20:00] VITALS: BP 166/87
--- NOTE | 2016-11-15 20:22 | NUR ---
RECEIVED REPORT, WILL ASSUME CARE PLAN, BLOODSUGAR-179, COVERED 8 UNITS JANIE R, PT DENIES ANY NEEDS, BED IS LOW, SRX2, CALL LIGHT IN REACH, WILL CONTINUE PLAN OF CARE
[2016-11-16] VITALS: BP 148/75
--- NOTE | 2016-11-16 00:11 | NUR ---
[id number] COVERAGE NEEDED
[2016-11-16 04:00] VITALS: BP 128/62
--- NOTE | 2016-11-16 04:25 | NUR ---
ASSESSMENT COMPLETE, SEE FLOWSHEET, BED IS LOW, SRX2, MARKETING COMMUNICATIONS LEADER DID COMPLETE BEDBATH/ LINEN CHANGE, GAVE PT NORCO FOR PAIN ORDER, CALL LIGHT IN REACH, WILL CONTINUE PLAN OF CARE
--- NOTE | 2016-11-16 07:15 | NUR ---
PT SITTING UP IN BED SLEEPING ARROUSES EASILY DENIES NEEDS WILL CONT TO MONITOR
[2016-11-16 07:18] LABS: MAGNESIUM - SERUM 1.7 mg/dL (1.8-2.4); PHOSPHOROUS 2.7 mg/dL (2.5-4.9)
--- NOTE | 2016-11-16 07:38 | NUR ---
PT STATES THAT SHE HAS NOT URINATED SINCE THE CARRASCO CATH WAS REMOVED. BLADDER SCAN PERFORMED 181 ML SHOWING IN BLADDER CURRENTLY. PT DOES NOT EXPERIENCE ANY DISCOMFORT. STOMACH IS FIRM AND DISTENDED.
--- NOTE | 2016-11-16 08:00 | NUR ---
PT STATES THAT SHE HAS IN FACT URINATED SINCE THE DC OF LUNA, EARLIER THIS AM ABOUT 6:45.
[2016-11-16 08:04] VITALS: BP 161/72
[2016-11-16 12:00] VITALS: BP 128/67
--- NOTE | 2016-11-16 13:41 | NUR ---
PT TOLD DR LIRA THAT SHE HAS NOT URINATED SINCE HER CARRASCO CATH CAME OUT YESTERDAY. DID ANOTHER BLADDER SCAN. [address] BL[address]DER. [address] LIRA ORDERED FOR ANOTHER CARRASCO TO BE PLACED. STUDENT NURSE TO PLACE WITH INSTRUCTOR.
--- NOTE | 2016-11-16 14:29 | NUR ---
Pt educated regarding acuña catheter insertion procedure. Heaven IVERSON KITTY Clinical instructor present 16 F 10cc acuña catheter inserted per MD orders using sterlie technique. Recieved 1150 cc clear yellow urine in drainage bag. Pt tolerated well.
[2016-11-16 16:00] VITALS: BP 137/74
--- NOTE | 2016-11-16 17:08 | NUR ---
PATIENT'S DISCHARGE CANCELLED HER CARRASCO WAS DISCONTINUED AND SHE HAD NOT VOIDED. BLADDER SCANNED. HAD 900 + CC. PATIENT WITH FEVER SPIKES AND WEAKNESS. TEMPS 100- 100.8 - 99.7.. ALL CX'S NEGATIVE EXCEPT URINE GREW YEAST. DAY #8 ROCEPHIN. DAY# 2 DIFLUCAN. AMBULATED 250 FT W/ MAX ASSIST. ?? REHAB
--- NOTE | 2016-11-16 17:46 | NUR ---
PT SITTING UP IN BED WATCHING TV DENIES ANY NEEDS OTHER THAN PAIN MEDICATION AND ICE WATER, BOTH GIVEN.
--- NOTE | 2016-11-16 19:45 | NUR ---
PT AWAKE AND ALERT/WATCHING TV. LUFA IV WITH NS @ KVO. CARRASCO PATENT TO BEDSIDE DRAIN BAG. LEFT LABIA CYST VERY PAINFUL TO PATIENT. DISCUSSED PAIN CONTROL, POSITIONING. SEE ASSESSMENT. CPOC.
[2016-11-16 20:00] VITALS: BP 145/74
[2016-11-17 02:00] VITALS: BP 153/74
[2016-11-17 04:00] VITALS: BP 177/87
--- NOTE | 2016-11-17 05:34 | NUR ---
PT HAS RESTED. SHE WAS EDUCATED ON THE AVAILABILITY OF IV BUPRENEX FOR PAIN IF SHE NEEDED IT AND HAS NOT REQUESTED IT. SHE WAS GIVEN A BATH BY 2 CNAS AT THE BEGINNING OF THE SHIFT. SILVADENE WAS APPLIED PER ORDERS BY NURSE TO LEFT LABIA/PUBIS MONS. MONITOR AND CPOC.
--- NOTE | 2016-11-17 06:23 | NUR ---
CURRENT VITAL SIGNS REFLECT ELEVATED SBP OF 170 AND TEMP OF 10O. MEDICATED PT WITH NORCO 10/325 TO HELP WITH TEMP AND PAIN, AND GAVE HYDRALAZINE 10MG SIVP FOR ELEVATED SBP. MONITOR AND CPOC.
--- NOTE | 2016-11-17 07:12 | NUR ---
AM ROUNDS- PT IN BED, SINGLE CORNER CUTTER AT BEDSIDE ASSESSING PT. PT DENIES ANY NEEDS AT THIS TIME. BED LOW AND WHEELS LOCKED. LT UPPER ARM IV SL. CALL LIGHT IN REACH, NAD NOTED, WILL CONTINUE TO MONITOR.
[2016-11-17 08:19] VITALS: BP 143/73
--- NOTE | 2016-11-17 09:48 | NUR ---
PROVIDED PT WITH SITZ BATH AND PROVIDED DRESSING CHANGE TO BOTTOM, PT TOLERARED PROCEDURE WELL. PT DENIES ANY NEEDS AT THIS TIME. CALL LIGHT IN REACH, NAD NOTED, WILL CONTINUE TO MONITOR.
--- NOTE | 2016-11-17 10:53 | NUR ---
PT IN BED, DENIES ANY NEEDS. TURKISH LINE ATTENDANT AT BEDSIDE TO DO VITAL SIGNS. CALL LIGHT IN REACH, NAD NOTED, WILL CONTINUE TO MONITOR.
[2016-11-17 11:31] VITALS: BP 137/75
--- NOTE | 2016-11-17 11:50 | NUR ---
DR. COBIAN AT BEDSIDE TO ASSESS PT. WOUND CULTURE COLLECTED BY DR. COBIAN, TAKEN TO LAB. PT DENIES ANY NEEDS AT THIS TIME. CALL LIGHT IN REACH, NAD NOTED, WILL CONTINUE TO MONITOR.
--- NOTE | 2016-11-17 12:09 | NUR ---
IVPB OF ROCEPHIN HUNG AT THIS TIME TO INFUSE TO LT UPPER ARM. BLOOD SUGAR OF 113, NO COVERAGE NEEDED PER S/S. DATA DESIGNER AT BEDSIDE TO DRAW BLOOD, PT TOLERATED PROCEDURE WELL, DENIES ANY NEEDS AT THIS TIME. CALL LIGHT IN REACH, NAD NOTED, WILL CONTINUE TO MONITOR.
[2016-11-17 12:15] LABS: BASOPHILS 0.1 % (0-2); EOSINOPHILS 0.8 % (0-7); HEMATOCRIT 32.1 % (36.0-48.0); HEMOGLOBIN 9.9 g/dL (12-16); IMMATURE GRANULOCYTES 0.4 % (0-5); LYMPHOCYTES 13.3 % (15-50); MCH 27.7 pg (26.0-34.0); MCHC 30.8 g/dL (31.0-37.0); MCV 89.7 fL (80.0-100.0); MEAN PLATELET VOLUME 11.3 fL (7.4-10.4); MONOCYTES 5.1 % (2-11); NEUTROPHILS 80.3 % (40-80); PLATELET COUNT 234 10x3/uL (130-400); RBC 3.58 10x6/uL (4.00-5.40); RDW 13.8 % (11.5-14.5); WBC 21.4 10x3/uL (4.8-10.8)
[2016-11-17 12:22] LABS: ANION GAP 9.4 mmol/L (8-16); CALCIUM 8.6 mg/dL (8.5-10.1); CARBON DIOXIDE 30.2 mmol/L (21.0-32.0); CREATININE - SERUM 1.2 mg/dL (0.6-1.3); POTASSIUM - SERUM 4.6 mmol/L (3.5-5.1)
--- NOTE | 2016-11-17 14:45 | NUR ---
CARRASCO CLAMPED AT THIS TIME TO BE ABLE TO COLLECT URINE CULTURE. PT IN BED, WITH EYES CLOSED, CALL LIGHT IN REACH, NAD NOTED, WILL CONTINUE TO MONITOR.
[2016-11-17 15:12] VITALS: BP 157/80
--- NOTE | 2016-11-17 16:08 | NUR ---
BLOOD SUGAR OF 77, NO COVERAGE NEEDED PER S/S. PT A LITTLE DROWSY DENIES ANY NEEDS AT THIS TIME. URINE SAMPLE COLLECTED, CARRASCO UNCLAMPED AT THIS TIME. CALL LIGHT IN REACH, NAD NOTED, WILL CONTINUE TO MONITOR.
--- NOTE | 2016-11-17 19:30 | NUR ---
RECEIVED PT RESTING IN BED WITH NO DISTRESS. KARLO MIDLINE IV SALINE LOCKED. CARRASCO PATENT TO BEDSIDE DRAIN BAG WITH YELLOW URINE. SEE ASSESSMENT, MONITOR AND CPOC.
--- NOTE | 2016-11-17 23:30 | NUR ---
HS MEDS GIVEN AND PT'S FSBS WAS 56. PROVIDED HER WITH SNACK AND MILK. PT RESTING, GAVE HER NORCO FOR PAIN. MONITOR AND CPOC. WILL PROVIDE WOUND CARE WHEN BATH IS DONE LATER PER SUPPORT COORDINATOR.
[2016-11-18] VITALS: BP 125/69
--- NOTE | 2016-11-18 02:40 | NUR ---
PT GIVEN COMPLETE BED BATH PER COAT MAKER. WOUND CARE TO SKIN TEAR/SLIT LOCATED ON BUTTOCK CREASE AND MEPILEX DRESSING APPLIED. APPLIED SILVADENE CREAM TO ENTIRE PERINEAL AREA/LABIAL FOLDS/PUBIS MONS. ADMINISTERED BUPRENEX 0.2MG SIVP TO PROMOTE OPTIMAL COMFORT SO PT CAN SLEEP. RECHECK BLOOD SUGAR AND IT WAS 65. SHE HAD FALLEN ASLEEP EARLIER WHEN EATING SNACK FOR BLOOD SUGAR OF 56. PROVIDED PT WITH CARTON OF MILD AND 4 SALVADOR CRACKERS THAT SHE ATE ALL OF. WILL MONITOR RESPONSE TO PAIN MEDSandra CARRASCO PATENT TO BEDSIDE DRAIN BAG. CPOC.
[2016-11-18 04:00] VITALS: BP 171/81
--- NOTE | 2016-11-18 05:01 | NUR ---
PT HAS RESTED WELL SINCE RECEIVING IV PAIN MED. CARRASCO PATENT TO BEDSIDE DRAIN BAG. CPOC.
[2016-11-18 05:49] LABS: BASOPHILS 0 % (0-2); EOSINOPHILS 0.6 % (0-7); HEMATOCRIT 28.8 % (36.0-48.0); IMMATURE GRANULOCYTES 0.2 % (0-5); LYMPHOCYTES 16.8 % (15-50); MCH 27.9 pg (26.0-34.0); MCHC 31.3 g/dL (31.0-37.0); MCV 89.2 fL (80.0-100.0); MEAN PLATELET VOLUME 11.3 fL (7.4-10.4); MONOCYTES 6.2 % (2-11); NEUTROPHILS 76.2 % (40-80); PLATELET COUNT 246 10x3/uL (130-400); RBC 3.23 10x6/uL (4.00-5.40); RDW 13.5 % (11.5-14.5); WBC 20.6 10x3/uL (4.8-10.8)
[2016-11-18 06:03] LABS: ANION GAP 10.8 mmol/L (8-16); CARBON DIOXIDE 29.3 mmol/L (21.0-32.0); CREATININE - SERUM 1.2 mg/dL (0.6-1.3); POTASSIUM - SERUM 5.1 mmol/L (3.5-5.1)
--- NOTE | 2016-11-18 07:20 | NUR ---
AM ROUNDS- PT REQUESTED SOME GRAM CRACKERS AND MILK. PROVIDED PT WITH REQUEST. PT DENIES ANY OTHER NEEDS AT THIS TIME. BED LOW AND WHEELS LOCKED, BESIDE RAILS X2. CALL LIGHT IN REACH, NAD NOTED, WILL CONTINUE TO MONITOR.
[2016-11-18 07:55] VITALS: BP 174/67
--- NOTE | 2016-11-18 08:17 | NUR ---
AM MEDS GIVEN AT THIS TIME. BLOOD SUGAR OF 163, 8UNITS OF HUMULIN GIVEN PER S/S. PT IN BED, DENIES ANY NEEDS AT THIS TIME. CALL LIGHT IN REACH, NAD NOTED, WILL CONTINUE TO MONITOR.
--- NOTE | 2016-11-18 10:21 | NUR ---
Patient Name: DAVIDSON ERNST Encounter No: [id number] : 1955 Primary Insurance: [employer] Anticipated DC Date: 11-15-2016 Planned Disposition: INPATIENT REHAB External Planned Provider: [facility] INPATIENT REHAB DCP follow-up note: CM RECEIVED INPATIENT REHAB EVALUATION ORDER, REVIEWED CHART AND SPOKE TO PT IN ROOM REGARDING REHAB OPTIONS AND DISCHARGE PLANNING. PT AGREEABLE FOR INPATIENT REHAB IF ACCEPTED AND INSURANCE WILL COVER. PT WILL CONSIDER HALF-WAY FACILITY OPTIONS IN CASE SHE IS DENIED IP REHAB BY INSURANCE. CM LEFT CHOICE / LIST FOR HALF-WAY FACILITY REHAB WHICH PT REPORTS SHE WILL DISCUSS WITH HER FRIEND AND LET CM KNOW CHOICE LATER TODAY. IMPORTANT MESSAGE FROM MEDICARE PROVIDED AND EXPLAINED. CM SPOKE TO BEDSIDE NURSE, NOTIFIED THAT PT DOES NOT HAVE OCCUPATIONAL THERAPY EVALUATION ORDERED AND WILL REQUIRED IT FOR INSURANCE CONSIDERATION / AUTHORIZATION FOR INPATIENT REHAB. CM WAITING OCCUPATIONAL THERAPY EVALUATION ORDER AND COMPLETION OF ASSESSMENT FOR SUBMISSION TO INSURANCE FOR AUTHORIZATION / DENIAL OF INPATIENT REHAB AT [place]. Raman Aragon, CASE MANAGMENT
[2016-11-18 12:50] VITALS: BP 156/79
--- NOTE | 2016-11-18 13:12 | NUR ---
Nutrition follow-up: Diet: ADA consistent CHO PO intake ~ 65% average of last 9 meals Labs reviewed Wt: 137# RDN following.
--- NOTE | 2016-11-18 15:22 | NUR ---
Rehab Note- Have began the Pre Auth process with [facility], reference #[id number]. Will continue to follow at this time. Thank you for this referral! Magda Chapman RN Clinical Liaison
[2016-11-18 16:27] VITALS: BP 138/72
--- NOTE | 2016-11-18 17:09 | NUR ---
OT NOTE: PT COMPLETED BED MOB WITH MIN/MOD A. PT COMPLETED GROOMING AND HYGIENE TASKS WITH SET UP. PT COMPLETED BUE AROM EXS FOR INCREASED I WITH ADLS. THANK YOU, EDITH MARTIN/Cassidy
--- NOTE | 2016-11-18 19:45 | NUR ---
RECIEVED PT AWAKE/ALERT AND WATCHING TV. KARLO MIDLINE SALINE LOCKED. SEE ASSESSMENT, MONITOR AND CPOC.
[2016-11-18 23:00] VITALS: BP 154/71
--- NOTE | 2016-11-19 05:00 | NUR ---
NO CHANGE FROM INITIAL SHIFT ASSESSMENT. MONITOR AND CPOC.
[2016-11-19 05:13] LABS: BASOPHILS 0.1 % (0-2); EOSINOPHILS 0.8 % (0-7); HEMATOCRIT 29.5 % (36.0-48.0); HEMOGLOBIN 8.9 g/dL (12-16); IMMATURE GRANULOCYTES 0.4 % (0-5); LYMPHOCYTES 17.8 % (15-50); MCH 27.3 pg (26.0-34.0); MCHC 30.2 g/dL (31.0-37.0); MCV 90.5 fL (80.0-100.0); MEAN PLATELET VOLUME 11.4 fL (7.4-10.4); NEUTROPHILS 73.9 % (40-80); PLATELET COUNT 292 10x3/uL (130-400); RBC 3.26 10x6/uL (4.00-5.40); RDW 13.3 % (11.5-14.5); WBC 19.8 10x3/uL (4.8-10.8)
[2016-11-19 05:21] LABS: ANION GAP 5.7 mmol/L (8-16); CALCIUM 8.2 mg/dL (8.5-10.1); CARBON DIOXIDE 34.1 mmol/L (21.0-32.0); CREATININE - SERUM 1.3 mg/dL (0.6-1.3); POTASSIUM - SERUM 4.8 mmol/L (3.5-5.1)
[2016-11-19 05:36] VITALS: BP 174/92
--- NOTE | 2016-11-19 08:07 | NUR ---
AM ROUNDING- RECEIVED REPORT FROM DEBATE DIRECTOR NURSE VAUGHN. PT IS CURRENTLY SITTING UP IN BED AWAITING BREAKFAST. PT DENIES ANY PAIN AT THIS TIME. ON ROOM AIR. NO MONITOR. IV SEEN TO LEFT UPPER ARM MIDLINE THAT IS CURRENTLY SALINE LOCKED. CARRASCO CATHETER SEEN WITH YELLOW URINE. NO NEED AT CURRENT TIME. WILL CONTINUE TO MONITOR AND CONTINUE WITH PLAN OF CARE.
[2016-11-19 08:34] VITALS: BP 157/83
[2016-11-19 12:24] VITALS: BP 158/79
--- NOTE | 2016-11-19 14:48 | NUR ---
GAVE PT SITZ BATH TO PERINEAL AREA ORDERED. CLEANED SITE WHERE CYST TO LEFT LABIA/PERINEAL AREA IS WITH WARM WATER AND BETA IODINE SOLUTION ORDERED. AREA WAS PAT DRY. SILVADENE OINTMENT APPLIED TO AREA. AREA IS HARD TO TOUCH, SWOLLEN, AND TENDER TO TOUCH. BELOW LABIA THERE IS SMALL OPENED WOUND MEASURING 2CM X 1.5CM WITH BLEEDING SEEN. SKIN TEAR SEEN TO BUTTOCK CREASE AREA MEASURING 6CM X 1CM WITH PINK TISSUE SEEN AND NO DRAINAGE. SMALL SKIN TEAR SEEN BELOW LARGER SKIN TEAR MEASURING 2CM X 0.5CM WITH PINK TISSUE SEEN AND NO DRAINAGE. MEPILEX DRESSING APPLIED TO BUTTOCK AREA. CHANGED PTS LINEN AND GOWN.
--- NOTE | 2016-11-19 15:28 | NUR ---
Rehab Note- Faxed clinicals to Carmelita Chavez with [facility] per request 11/19/16 at 0859 this AM. Continue to await approval for possible IRF stay. Magda Chapman RN Clinical Liaison, [facility] Rehab
--- NOTE | 2016-11-19 16:04 | NUR ---
Rehab Note- received notification from Carmelita Chavez with [facility] that the patient has been denied an acute rehab stay, but a peer to peer can be set up before 11/20/16 @ 1430. Notify her at [phone] with the physician and a convinent time for a peer to peer if to be set up. Spoke with ELDON Goldberg, stated he will talk to Bonnie Edwards and Dr. Tripp about possible peer to peer. Thjank you for this referral! Magda Chapman RN Clinical Liaison, [facility] Rehab
[2016-11-19 16:33] VITALS: BP 146/79
--- NOTE | 2016-11-19 17:13 | NUR ---
Patient Name: DAVIDSON ERNST Encounter No: [id number] : 1955 Primary Insurance: [employer] Anticipated DC Date: 11-15-2016 Planned Disposition: INPATIENT REHAB External Planned Provider: [facility] INPATIENT REHAB DCP follow-up note: Received denial for IRF stay for [facility], reference #[id number]. CM NOTIFIED PT WHO REPORTS PLAN B OF [facility]HAB IF INSURANCE WILL NOT PAY FOR INPATIENT REHAB. CHOICE SIGNED. PT NOTIFIED THAT CM WILL ASK DOCTOR IF WILLING FOR PEER TO PEER. CM PAGED LENARD GALICIA TO NOTIFY OF BELOW INFORMATION. Received denial for IRF stay for [facility], reference #[id number]. A peer to peer may be set up through Carmelita Chavez with [facility] at [phone], it has to be set up before Fri11/20/16 @ 8559. Raman Aragon, CASE MANAGEMENT
--- NOTE | 2016-11-19 17:19 | NUR ---
OT NOTE: TRUNK STRENGTHENING TASKS AND AROM EXS; PT REPORTED INCREASED FATIGUE TODAY
--- NOTE | 2016-11-19 17:21 | NUR ---
OT NOTE: PT COMPLETED GROOMING TASK WITH SET UP. PT COMPLETED BED MOB WITH MIN A. THANK YOU, EDITH MARTIN/Cassidy
--- NOTE | 2016-11-19 17:26 | NUR ---
PT IS CURRENTLY LAYING IN BED ON RIGHT SIDE WITH EYES CLOSED RESTING. NO NEED AT CURRENT TIME. WILL CONTINUE TO MONITOR.
[2016-11-19 19:00] VITALS: BP 154/82
--- NOTE | 2016-11-19 21:10 | NUR ---
PT FSBS IS 264, 10 UNITS HUMULIN R GIVEN.
--- NOTE | 2016-11-19 21:35 | NUR ---
GAVE SITZ BATH TO PT'S PERINEAL AREA ORDERED.
[2016-11-20] VITALS: BP 179/85
--- NOTE | 2016-11-20 | NUR ---
PT FSBS IS 197 4 UNITS HUMULIN R GIVEN.
[2016-11-20 04:00] VITALS: BP 132/64
[2016-11-20 05:18] LABS: BASOPHILS 0.1 % (0-2); EOSINOPHILS 0.6 % (0-7); HEMATOCRIT 24.4 % (36.0-48.0); HEMOGLOBIN 7.6 g/dL (12-16); IMMATURE GRANULOCYTES 0.4 % (0-5); LYMPHOCYTES 17.3 % (15-50); MCH 27.6 pg (26.0-34.0); MCHC 31.1 g/dL (31.0-37.0); MCV 88.7 fL (80.0-100.0); MEAN PLATELET VOLUME 10.9 fL (7.4-10.4); MONOCYTES 4.9 % (2-11); NEUTROPHILS 76.7 % (40-80); PLATELET COUNT 245 10x3/uL (130-400); RBC 2.75 10x6/uL (4.00-5.40); RDW 12.8 % (11.5-14.5); WBC 17.9 10x3/uL (4.8-10.8)
[2016-11-20 05:45] LABS: ANION GAP 7.6 mmol/L (8-16); CALCIUM 7.7 mg/dL (8.5-10.1); CARBON DIOXIDE 31.9 mmol/L (21.0-32.0); CREATININE - SERUM 1.2 mg/dL (0.6-1.3); POTASSIUM - SERUM 4.5 mmol/L (3.5-5.1)
--- NOTE | 2016-11-20 07:56 | NUR ---
AM ROUNDING- RECEIVED REPORT FROM TAPE DUPLICATOR NURSE RALEIGH. PT IS CURRENTLY SITTING UP IN BED WITH EYES CLOSED RESTING. ON ROOM AIR. NO MONITOR. IV SEEN TO LEFT UPPER ARM MIDLINE THAT IS CURRENTLY SALINE LOCKED. CARRASCO CATHETER SEEN WITH YELLOW URINE. NO NEED AT CURRENT TIME. WILL CONTINUE TO MONITOR AND CONTINUE WITH PLAN OF CARE.
[2016-11-20 08:00] VITALS: BP 118/63
--- NOTE | 2016-11-20 09:56 | NUR ---
Patient Name: DAVIDSON ERNST Encounter No: [id number] : 1955 Primary Insurance: [facility] Anticipated DC Date: 11-15-2016 Planned Disposition: NURSING HOME FACILITY External Planned Provider: [facility], MEDICARE REHAB BED DCP follow-up note: CM PAGED AND SPOKE TO LENARD GALICIA, DISCUSSED INPATIENT DENIAL AND ASKED IF DOCTOR WILL DO PEER TO PEER; CM WAS ADVISED TO SEEK NURSING HOME FOR REHAB. CM CALLED SHEEBA OF [facility], , INFORMED OF REFERRAL. CM FAXED REFERRAL FOR REHAB TO [facility] AT [phone]. CM WAITING ADMISSION DETERMINATION AND INSURANCE APPROVAL FOR NURSING HOME REHAB SERVICES AT [facility]. Raman Aragon, CASE MANAGEMENT
[2016-11-20 12:00] VITALS: BP 152/66
[2016-11-20 14:02] LABS: BASOPHILS 0.1 % (0-2); EOSINOPHILS 0.6 % (0-7); HEMATOCRIT 25.8 % (36.0-48.0); IMMATURE GRANULOCYTES 0.5 % (0-5); MCH 27.6 pg (26.0-34.0); MEAN PLATELET VOLUME 11.1 fL (7.4-10.4); MONOCYTES 4.3 % (2-11); NEUTROPHILS 80.5 % (40-80); PLATELET COUNT 247 10x3/uL (130-400); RDW 12.8 % (11.5-14.5); WBC 17.1 10x3/uL (4.8-10.8)
[2016-11-20 16:00] VITALS: BP 154/70
--- NOTE | 2016-11-20 16:07 | NUR ---
OT NOTE: PT SEEN TODAY; DOING MUCH BETTER; SHE REPORTS FEELING BETTER WITH LESS PAIN; STATIC SITTING TODAY WITH CGA/SBA. NOT LEANING INTO EXTENSION SHE PREVIOUSLY HAS BEEN. PERFORMED AROM EXS; STRENGTH SLIGHTLY LESS IN L SIDE
--- NOTE | 2016-11-20 16:11 | NUR ---
OT NOTE: PT COMPLETED BED MOB WITH SBA/CGA. PT COMPLETED SITTING BALANCE WITH CGA FOR INCREASED I WITH ADLS. PT COMPLETED BUE AROM EXS FOR INCREASED AX TOLERANCE. THANK YOU, EDITH MARTIN/Cassidy
--- NOTE | 2016-11-20 16:29 | NUR ---
PT IS CURRENTLY LAYING IN BED ON BACK WITH EYES OPEN RESTING. PT STATES SHE HAS 5/10 PAIN CURRENTLY. I INFORMED PT TO LET ME KNOW IF SHE NEEDS SOMETHING FOR PAIN. CALL LIGHT IS IN REACH. WILL CONTINUE TO MONITOR.
--- NOTE | 2016-11-20 20:40 | NUR ---
PT LYING IN BED AWAKE AND ALERT STATING THAT SHE HAS PAIN RATING 7/10 AROUND HER ABD/LABIA/PERINEAL AREA. CONSTANT, ACHING PAIN. ADMINISTERED PRN PAIN MEDICATION AND GAVE HER A SITZ BATH. CHANGED PINK PAD AND BANDAGE ON BUTTOCKS, SIGNED AND DATED IT. SKIN TEARS PRESENT ON BUTTOCKS. WILL REASSESS PAIN LEVEL IN 30 MINUTES. PT DENEIS ANY OTHER REQUESTS. CALL LIGHT IN REACH. BED IN LOWEST POSITON.
[2016-11-20 21:05] VITALS: BP 150/62
[2016-11-21 01:19] VITALS: BP 132/62
--- NOTE | 2016-11-21 02:30 | NUR ---
PT RESTING ON HER BACK WITH THE TV ON AT THIS TIME. NC @ 2 L/MIN. NO S/S OF DISTRESS. CALL LIGHT AND BEDSIDE TABLE WITHIN REACH. BED IN LOWEST POSITION. DOOR CRACKED. WILL CONTINUE TO MONITOR.
[2016-11-21 05:02] LABS: BASOPHILS 0.1 % (0-2); HEMATOCRIT 25.8 % (36.0-48.0); HEMOGLOBIN 8.1 g/dL (12-16); IMMATURE GRANULOCYTES 0.4 % (0-5); LYMPHOCYTES 18.7 % (15-50); MCH 27.8 pg (26.0-34.0); MCHC 31.4 g/dL (31.0-37.0); MCV 88.7 fL (80.0-100.0); MEAN PLATELET VOLUME 10.4 fL (7.4-10.4); MONOCYTES 6.5 % (2-11); NEUTROPHILS 73.3 % (40-80); PLATELET COUNT 245 10x3/uL (130-400); RBC 2.91 10x6/uL (4.00-5.40); RDW 12.7 % (11.5-14.5); WBC 14.4 10x3/uL (4.8-10.8)
[2016-11-21 05:19] LABS: ANION GAP 8.9 mmol/L (8-16); CALCIUM 8.3 mg/dL (8.5-10.1); CARBON DIOXIDE 34.5 mmol/L (21.0-32.0); CREATININE - SERUM 1.2 mg/dL (0.6-1.3); POTASSIUM - SERUM 4.4 mmol/L (3.5-5.1)
--- NOTE | 2016-11-21 05:37 | NUR ---
PT RECIEVED COMPLETE BED BATH AND LINEN CHANGE PROVIDED BY CLEAN UP WORKER'S. PT STATES THAT SHE IS FEELING MUCH BETTER WITH NO PAIN AT THE MOMENT. PT STATES THAT SHE SLEPT VERY WELL AND IS FEELING WELL RESTED. CARRASCO CATH DRAINING CLEAR URINE. I&O'S COLLECTED. WILL CONTINUE TO MONITOR.
--- NOTE | 2016-11-21 05:50 | NUR ---
CHANGED MEPILEX BANDAGES ON BUTTOCKS. 2 PINK SKIN TEARS NOTED. INITIALED AND DATED BANDAGE.
[2016-11-21 06:18] VITALS: BP 148/73
--- NOTE | 2016-11-21 07:13 | NUR ---
PT SITTING UP IN BED LAYING FLAT SLEEPING. RR EVEN AND UNLABORED NO S/S DISTRESS NOTED. STUDENT NURSE AT BEDSIDE. WILL CONT TO MONITOR
[2016-11-21 07:27] LABS: PHOSPHOROUS 3.3 mg/dL (2.5-4.9)
[2016-11-21 08:09] VITALS: BP 143/67
--- NOTE | 2016-11-21 09:32 | NUR ---
Patient Name: DAVIDSON ERNST Encounter No: [id number] : 1955 Primary Insurance: [facility] Anticipated DC Date: 11-15-2016 Planned Disposition: LONGTERM FACILITY External Planned Provider: [facility], MEDICARE REHAB BED DCP follow-up note: CM FAXED UPDATE TO REFERRAL TO [facility], . CM WILL FOLLOW UP WITH STENOGRAPHER SECRETARY AFTER THEIR MORNING MEETING TODAY. CM WAITING ADMISSION DETERMINATION AND INSURANCE APPROVAL FOR LONGTERM REHAB SERVICES AT [facility]. Raman Aragon, CASE MANAGEMENT
[2016-11-21 12:52] VITALS: BP 152/77
--- NOTE | 2016-11-21 14:25 | NUR ---
Patient Name: DAVIDSON ERNST Encounter No: [id number] : 1955 Primary Insurance: [employer] Anticipated DC Date: 11-15-2016 Planned Disposition: PRISON FACILITY External Planned Provider: [facility], [place] DCP follow-up note: CM RECEIVED CALL FROM SHEEBA OF [facility], SHE HAS RECEIVED AUTHORIZATION FOR PRISON REHAB AND CAN ACCEPT PT TODAY AND NEEDS FAMILY TO ASSIST WITH ADMISSION PAPERWORK. CM MET WITH PT AND SISTER, PAOLO GORDON, IN ROOM. PT AND SISTER DO NOT WANT PT TO GO TO [facility] IN [place], REPORTS PT HAS FAMILY IN [place] AND THEY WANT PT IN PRISON FACILITY IN [place]. PT'S SISTER ASKED THAT PT BE PLACED IN INPATIENT REHAB, CM EXPLAINED THAT INSURANCE WOULD NOT PAY FOR IT AND WILL PAY FOR PRISON REHAB; CM EXPLAINED THAT PT IS TOO WEAK TO GO HOME ALONE WITH HOME HEALTH THERAPY. FAMILY ASKED FOR OPTIONS IN [place] AND [place]. CM PRINTED PRISON FACILITY LISTING FOR [place] AND [place] FROM THE MEDICARE WEBSITE WITH RATINGS, PROVIDED TO PT AND HER SISTER AND BROTHER IN LAW IN ROOM. PT'S SISTER ASKED TO SPEAK TO THE DOCTOR REARDING PT'S MEDICAL TREATMENT. CM NOTIFIED LENARD FRIDA OF FAMILY REQUEST. AFTER ABOUT 20 MINUTES, PT'S SISTER ASKED TO SEE CM, CM MET WITH PT AND FAMILY IN ROOM, PT SELECTED [facility] [place] WITH FAMILY ASSISTANCE. CHOICE SIGNED, IMPORTANT MESSAGE FROM MEDICARE PROVIDED AND EXPLAINED. ELDON CALLED GARRICK, CLINICAL LIAISON FOR [facility], [place], , WHO WILL ARRIVE SHORTLY TO ASSESS PT AND INSIDE TECHNICAL SALES REPRESENTATIVE REFERRAL. GARRICK ARRIVED, COLLECTED REFERRAL FOR REHAB ASSESSMENT. CM WAITING ADMISSION DETERMINATION FROM [facility] IN [place]. Raman Aragon, CASE MANAGEMENT
--- NOTE | 2016-11-21 14:38 | NUR ---
OT NOTE: PERFORMED BED MOB WITH MIN ASSIST; PT WAS FATIGUED SHE HAD JUST AMB 130 FT WITH PT; PERFORMED UE EXS AND SIT TO STAND EXS FROM BED BEFORE LIEING DOWN TO REST
--- NOTE | 2016-11-21 14:40 | NUR ---
OT NOTE: PT COMPLETED ADL MOB WITH MIN A/CGA. PT COMPLETED BED MOB WITH MIN A. PT COMPLETED GROOMING AND HYGIENE TASKS WITH MIN A. THANK YOU, EDITH MARTIN/Cassidy
--- NOTE | 2016-11-21 15:45 | NUR ---
PT HAS TEMP 101.3. PAGED LAURA
[2016-11-21 16:19] VITALS: BP 158/75
--- NOTE | 2016-11-21 18:39 | NUR ---
PT SITTING UP IN BED SLEEPING NO S/S DISTRESS NOTED RR EVEN AND UNLABORED
[2016-11-21 19:00] VITALS: BP 149/73
--- NOTE | 2016-11-21 20:17 | NUR ---
BLOODSUGAR -256, GAVE 10 UNITS OF HUMLIN R, PT DENIES ANY OTHER NEEDS, BED IS LOW, SRX2, SCD ARE ON, CALL LIGHT IN REACH, WILL CONTINUE PLAN OF CARE
[2016-11-22] VITALS: BP 144/72
--- NOTE | 2016-11-22 00:02 | NUR ---
BLOODSUGAR-206, COVERED 8 UNITS HUMLIN R PER ORDER
--- NOTE | 2016-11-22 03:42 | NUR ---
ASSISTANT FINANCE DIRECTOR DID COMPLETE BEDBATH/ LINEN CHANGE, REPLACE MEPLEX TO BOTTOM, BLOODSUGAR-164, COVERED 4 UNITS JANIE Alfredo
[2016-11-22 04:00] VITALS: BP 177/88
[2016-11-22 05:08] LABS: BASOPHILS 0.2 % (0-2); EOSINOPHILS 1.1 % (0-7); HEMATOCRIT 26.3 % (36.0-48.0); HEMOGLOBIN 8.4 g/dL (12-16); IMMATURE GRANULOCYTES 0.4 % (0-5); MCH 28.3 pg (26.0-34.0); MCHC 31.9 g/dL (31.0-37.0); MCV 88.6 fL (80.0-100.0); MEAN PLATELET VOLUME 10.9 fL (7.4-10.4); MONOCYTES 4.6 % (2-11); NEUTROPHILS 77.7 % (40-80); PLATELET COUNT 250 10x3/uL (130-400); RBC 2.97 10x6/uL (4.00-5.40); RDW 12.7 % (11.5-14.5)
[2016-11-22 05:18] LABS: ANION GAP 6.6 mmol/L (8-16); CALCIUM 8.3 mg/dL (8.5-10.1); CARBON DIOXIDE 35.5 mmol/L (21.0-32.0); CREATININE - SERUM 1.2 mg/dL (0.6-1.3); MAGNESIUM - SERUM 2.1 mg/dL (1.8-2.4); PHOSPHOROUS 3.3 mg/dL (2.5-4.9); POTASSIUM - SERUM 4.1 mmol/L (3.5-5.1)
--- NOTE | 2016-11-22 07:15 | NUR ---
PT SITTING UP IN BED SLEEPING NO S/S DISTRESS NOTED RR EVEN AND UNLABORED. WILL CONT TO MONITOR
[2016-11-22 08:12] VITALS: BP 155/68
--- NOTE | 2016-11-22 09:43 | NUR ---
PT WANTS TO WAIT TO DO HER SITZ BATH, SHE JUST FINISHED WITH THERAPY AND IS HURTING AND TIRED. PT WILL LET STAFF KNOW WHEN SHE IS READY
[2016-11-22 12:13] VITALS: BP 146/71
--- NOTE | 2016-11-22 12:30 | NUR ---
Nutrition Follow Up: Pt reported that her appetite is good. She is eating 64% meal avg on a diabetic diet. Wt stable. No BM recorded since admit - x 13 days. Labs reviewed - Glucose continues elevated but is trending down. Meds noted. Rec continue current diet. Rec consider bowel regimen. RD following.
--- NOTE | 2016-11-22 12:41 | NUR ---
OT NOTE: PERFORMED UE STRENGTHEING AND ROM EXS WHILE ON EDGE OF BED; STATIC SITTNG MUCH IMPROVED
--- NOTE | 2016-11-22 13:45 | NUR ---
GOT PT UP TO BATHROOM FOR SITZ BATH. PT TOLERATED WELL. DURATION ABOUT 15 MINUTES. WHEN TRANSFERING PT BACK TO BED, PT BECAME TIRED AND REQUESTED PILLOW TO REST HER KNEES ON WE EASED HER DOWN TO SIT ON FLOOR. , DONE. RADHA PHYSICAL THERAPY CAME AND HELPED COLOR MAKER DYER PT AND TRANSFER HER BACK TO BED.
[2016-11-22 16:07] VITALS: BP 139/73
--- NOTE | 2016-11-22 16:11 | NUR ---
OT NOTE: PT COMPLETED ORAL HYGIENE AND GROOMING TASKS WITH SET UP. PT COMPLETED BED MOB WITH MIN A. PT COMPLETED BUE AROM EXS FOR INCREASED AX GEO. THANK YOU, EDITH MARTIN/Cassidy
--- NOTE | 2016-11-22 18:03 | NUR ---
PT SITTING UP IN BED SLEEPING NO S/S DISTRESS NOTED RR EVEN AND UNLABORED.
[2016-11-22 19:00] VITALS: BP 150/80
--- NOTE | 2016-11-22 19:30 | NUR ---
RECEIVED REPORT, WILL ASSUME CARE OF PT, PT DENIES ANY NEEDS, BED IS LOW, SRX2, CALL LIGHT IN REACH, WILL CONTINUE PLAN OF CARE
--- NOTE | 2016-11-22 20:35 | NUR ---
BLOODSUGAR-290, COVERED WITH 10 UNIT HUMLIN R ORDER
[2016-11-23] VITALS: BP 147/82
--- NOTE | 2016-11-23 00:16 | NUR ---
ASSESSMENT REMAINS UNCHANGED. PT RESTING SOUNDLY WITHOUT C/O OR DISTRESS NOTED. DENIES ANY CURRENT C/O PAIN. WILL CONT TO MONITOR
--- NOTE | 2016-11-23 00:22 | NUR ---
BLOODSUGAR-177, COVERED 4 UNITS JANIE Alfredo
--- NOTE | 2016-11-23 03:37 | NUR ---
BLOODSUGAR-88 NO COVERAGE NEEDED AT THIS TIME
[2016-11-23 04:06] VITALS: BP 154/83
--- NOTE | 2016-11-23 04:12 | NUR ---
HELP MOBILE HEALTH VEHICLE OPERATOR WITH BED BATH/ LINEN CHANGE, PLACE MEPLEX DRESSING TO BUTTOCK, L. [id number], WITH SMALL AMOUNT OF MUCOPURULENT DISCHARGE, PT DENIES PAIN
--- NOTE | 2016-11-23 07:16 | NUR ---
PT SITTING UP IN BED SLEEPING NO S/S DISTRESS NOTED. RR EVEN AND UNLABORED. WILL CONT TO MONITOR
[2016-11-23 07:42] VITALS: BP 158/73
--- NOTE | 2016-11-23 09:31 | NUR ---
LATE ENTRY-- 11/22/16 1400 CHANGED LEFT FA MIDLINE DSNG USING STERILE TECHNIQUE. BIOPATCH INTACT DSNG ADHERED TO SKIN SWAB CAPS IN USE. PT TOLERATED PROCEDURE WELL
--- NOTE | 2016-11-23 11:32 | NUR ---
PT FSBS IS TRENDING DOWN. PT FEELS A LOT BETTER FROM HIGH FSBS EARLIER OF 327. FSBS CURRENTLY NOW IS 209.
[2016-11-23 12:20] VITALS: BP 152/86
[2016-11-23 15:52] VITALS: BP 147/72
--- NOTE | 2016-11-23 18:06 | NUR ---
PT SITTING UP IN BED SLEEPING NO S/S DISTRESS NOTED RR EVEN AND UNLABORED.
[2016-11-23 20:00] VITALS: BP 151/83
--- NOTE | 2016-11-23 22:01 | NUR ---
PT LYING IN BED, EYES CLOSED, RESPIRATIONS EVEN AND UNLABORED. PT IS EASILY ROUSABLE TO VERBAL STIMULI, DENIES ANY NEEDS AT THIS TIME. CONTINUE TO MONITOR CLOSELY. BED LOW, CALL LIGHT IN REACH, SIDE RAILS X 2, HOB 35-40 DEGREES.
--- NOTE | 2016-11-24 00:33 | NUR ---
PT DEMONSTRATES GREAT WEAKNESS AND LETHARGY, HARD TO ROUSE WITH VERBAL STIMULI, REQUIRES GENTLE TOUCHING. PT DOES NOT COMPLETE A SENTENCE WHEN ANSWERING QUESTIONS. FSBS REMAIN HIGH, WILL CONTINUE TO MONITOR CLOSELY. BED LOW, CALL LIGHT IN REACH, SIDE RAILS X 2, HOB 40 DEGREES.
--- NOTE | 2016-11-24 03:43 | NUR ---
FSBS IS 62, GAVE ORANGE JUICE, SALVADOR CRACKERS, AND MILK FOR A SNACK. PT IS MORE ALERT AND AWAKE AT THIS POINT. WILL CONTINUE TO MONITOR CLOSELY.
[2016-11-24 04:00] VITALS: BP 158/77
--- NOTE | 2016-11-24 06:15 | NUR ---
RECHECKED FSBS IS 200 - WILL TX AT @ 0800 PER ORDER.
[2016-11-24 08:00] VITALS: BP 158/74
--- NOTE | 2016-11-24 08:15 | NUR ---
AM ROUNDING- PT IS CURRENTLY LAYING IN BED ON BACK WITH EYES CLOSED RESTING. ON 02 AT 2L VIA NC. NO MONITOR. IV SEEN TO LEFT UPPER ARM MIDLINE THAT IS CURRENTLY SALINE LOCKED. CARRASCO CATHETER SEEN WITH YELLOW URINE. NO NEED AT CURRENT TIME. WILL CONTINUE TO MONITOR AND CONTINUE WITH PLAN OF CARE.
[2016-11-24 12:00] VITALS: BP 156/80
--- NOTE | 2016-11-24 13:55 | NUR ---
0930- GAVE PT SITZ BATH ON BEDPAN WITH WARM WATER AND BETADINE SOLUTION. PAT DRIED SITE. DID NOT APPLY SILVADENE CREAM DUE TO HAVING OPEN WOUND BELOW SWOLLEN LEFT LABIA AREA. WOUND/EXCORIATION (UNDER LEFT LABIA AREA) APPEARS TO BE OPEN, WITH THICK WHITISH/BLACKISH DRAINAGE WITH REDDENED EDGES. BUTTOCK AREA HAS SKIN TEAR MEASURING APPROX 3CM X 1.5CM. COVERED SITE WITH MEPILEX DRESSING. DR. CALDERON ON UNIT. INFORMED HIM OF PTS WOUND UNDER LEFT LABIA AREA. DR. CALDERON STATES IT IS OKAY TO PUT WOUND CARE CONSULT IN. WILL DO ORDERED AND CONTINUE TO MONITOR.
--- NOTE | 2016-11-24 13:59 | NUR ---
BARBARA COLEY CAME TO INFORM ME SHE GAVE PT SECOND SITZ BATH ON BEDSIDE COMMODE.
--- NOTE | 2016-11-24 14:04 | NUR ---
PT IS UP WALKING WITH PHYSICAL THERAPY WITH WALKER.
[2016-11-24 16:00] VITALS: BP 157/73
--- NOTE | 2016-11-24 18:39 | NUR ---
PT IS CURRENTLY SITTING UP IN BED WITH EYES OPEN RESTING. PT DENIES ANY NEED AT CURRENT TIME. BED IS IN LOW POSITION, SIDE RAILS ARE UP X2, AND CALL LIGHT IS IN REACH. WILL CONTINUE TO MONITOR.
--- NOTE | 2016-11-24 20:27 | NUR ---
PT LYING IN BED, MORE AWAKE, ALERT THIS EVENING. PT DENIES ANY NEEDS AT THIS TIME, WILL CONTINUE TO MONITOR CLOSELY.
[2016-11-24 22:41] VITALS: BP 131/69
--- NOTE | 2016-11-25 01:12 | NUR ---
FSBS WAS SCANNED TO WRONG PT BUT THE RESULT IS THAT OF THIS PT AND IS CORRECT. I AM NOT TX FSBS OF 216 R/T PT BOTTOMING OUT LAST NIGHT AFTER RECEIVING MIDNIGHT DOSE OF INSULIN. PT AGREES WITH THIS PLAN. PT DEMONSTRATES LETHARGY AGAIN, SHE IS RUNNING A LOW GRADE TEMP, AND HAS DONE THIS IN THE PAST. PT DENIES ANY NEEDS. CONTINUE TO MONITOR CLOSELY. WRONG PT SCANNED IS PT IN 2111, BUT AGAIN, THE GLUCOSE OF 216 DOES BELONG TO MRS. ERNST IN 2110. CONTINUE TO MONITOR CLOSELY.
[2016-11-25 02:51] VITALS: BP 150/70
[2016-11-25 05:21] LABS: BASOPHILS 0.3 % (0-2); EOSINOPHILS 2.5 % (0-7); HEMATOCRIT 24.8 % (36.0-48.0); HEMOGLOBIN 7.6 g/dL (12-16); IMMATURE GRANULOCYTES 0.3 % (0-5); LYMPHOCYTES 23.1 % (15-50); MCH 27.1 pg (26.0-34.0); MCHC 30.6 g/dL (31.0-37.0); MCV 88.6 fL (80.0-100.0); MEAN PLATELET VOLUME 10.7 fL (7.4-10.4); MONOCYTES 6.2 % (2-11); NEUTROPHILS 67.6 % (40-80); PLATELET COUNT 232 10x3/uL (130-400); RDW 12.4 % (11.5-14.5); WBC 10.4 10x3/uL (4.8-10.8)
[2016-11-25 05:27] VITALS: BP 156/80
[2016-11-25 05:43] LABS: ANION GAP 8.9 mmol/L (8-16); CALCIUM 8.2 mg/dL (8.5-10.1); CARBON DIOXIDE 32.1 mmol/L (21.0-32.0)
[2016-11-25 08:00] VITALS: BP 148/75
--- NOTE | 2016-11-25 10:06 | NUR ---
Patient Name: DAVIDSON ERNST Encounter No: [id number] : 1955 Primary Insurance: [employer]CRSOL Anticipated DC Date: 11-22-2016 Planned Disposition: Group Home Facility External Planned Provider: [facility] REHAB BED DCP follow-up note: CM CALLED [facility], ; CM SPOKE TO RECEPTIONISTS, LEFT MESSAGE FOR OPAL REQUESTING RETURN CALL, CM FAXED UPDATED REFERRAL TO [facility] AT [phone]. CM WAITING ADMISSION DETERMINATION AND INSURANCE AUTHORIZATION FOR REHAB AT [facility]. Raman Aragon, CASE MANAGEMENT
[2016-11-25 12:00] VITALS: BP 166/78
--- NOTE | 2016-11-25 13:56 | NUR ---
WOUND CARE CONSULT UPDATE: WOULD TO LEFT LABIA IS NOW WITH A GREYISH/BLACK SLOUGH THAT HAS A LIGHT YELLOW DRAINAGE, NO ODOR. WOUND IS 2.5 CM X 2.0 CM X 2.0 CM. UNABLE TO PULL SLOUGH OFF. LIGHTLY PACKED WITH CLEAN 2 X 2. NO TAPE APPLIED. WILL HAVE NURSE'S CHANGE THIS NEEDED. MARILYN DUNHAM IN ROOM WHILE THIS IS BEING DONE.
[2016-11-25 15:23] LABS: IRON 22 ug/dl (35-150)
[2016-11-25 15:24] LABS: % SATURATION 12 % (15-55); TOTAL IRON BIND CAPACITY 174 ug/dl (260-445); UNSAT IRON BIND CAPACITY 152 ug/dl (150-375)
[2016-11-25 16:00] VITALS: BP 168/84
--- NOTE | 2016-11-25 18:44 | NUR ---
ALERT AND ORIENTED X4. RESTING IN BED. BLOOD READY. BLOOD CONSENT SIGNED ON CHART. INTITIATE FIRST UNIT OF PRBC TRANSFUSION. BP-138/66, P-96, T-98.7. CONTINUE PLAN OF CARE. REMAIN IN ROOM FIRST 15MINS TO MONITOR FOR ANY REACTIONS. BED LOCKED AND LOW CALL LIGHT IN REACH. TWO SIDERAILS UP.
--- NOTE | 2016-11-25 18:55 | NUR ---
ALERT AND ORIENTED X4. RESTING IN BED. BP-137/68, P-97, T-98.8. INCREASE TRANSFUSION TO 125mL/HR THROUGH LT MIDLINE IV. CONTINUE PLAN OF CARE. REPORT OFF TO KISHOR HOLLIDAY.
[2016-11-25 21:50] VITALS: BP 143/70
--- NOTE | 2016-11-25 23:26 | NUR ---
2ND UNIT OF PRBC'S STARTED. PT DENIES ANY NEEDS AT THIS TIME. CONTINUE TO MONITOR CLOSELY.
[2016-11-26] VITALS: BP 153/75
--- NOTE | 2016-11-26 00:53 | NUR ---
PRBC'S STILL TRANSFUSING AT 150MLS/HR, PT LYING IN BED, EYES CLOSED, RESPIRATIONS EVEN AND UNLABORED. PT IS EASILY ROUSABLE TO VERBAL STIMULI, DENIES ANY NEEDS. CONTINUE TO MONITOR CLOSELY.
[2016-11-26 01:18] VITALS: BP 148/66
--- NOTE | 2016-11-26 02:17 | NUR ---
PT FINISHED 2 UNIT OF PRBC'S WITHOUT ANY DIFFICULTIES. FLUSHING WITH NS NOW. CONTINUE TO MONITOR CLOSELY.
--- NOTE | 2016-11-26 02:24 | NUR ---
WHILE CHANGING OUT PTS IV FLUIDS/TUBING, PT WAS FOUND TO BE DIAPHORETIC AND LETHARGIC. PTS V/S HAVE REMAINED STABLE THROUGH OUT THE 2 UNITS OR PRBC'S, HOWEVER, PT HAS MAINTAINED A LOW GRADE TEMP MOST OF THIS SHIFT. FSBS WAS 148 AND PO TEMP IS NOW 98.3. PT IS EASILY ROUSABLE TO VERBAL STIMULI. CONTINUE TO MONITOR CLOSELY.
[2016-11-26 05:35] VITALS: BP 161/82
[2016-11-26 06:03] LABS: BASOPHILS 0.4 % (0-2); EOSINOPHILS 4.1 % (0-7); IMMATURE GRANULOCYTES 0.4 % (0-5); LYMPHOCYTES 26.7 % (15-50); MCH 28.9 pg (26.0-34.0); MCHC 33.3 g/dL (31.0-37.0); MEAN PLATELET VOLUME 10.4 fL (7.4-10.4); MONOCYTES 6.7 % (2-11); NEUTROPHILS 61.7 % (40-80); PLATELET COUNT 220 10x3/uL (130-400); RDW 13.3 % (11.5-14.5); WBC 10.7 10x3/uL (4.8-10.8)
[2016-11-26 06:04] LABS: ANION GAP 9.6 mmol/L (8-16); CALCIUM 7.8 mg/dL (8.5-10.1); CARBON DIOXIDE 30.3 mmol/L (21.0-32.0); CREATININE - SERUM 1.2 mg/dL (0.6-1.3); POTASSIUM - SERUM 3.9 mmol/L (3.5-5.1); RBC 3.81 10x6/uL (4.00-5.40)
[2016-11-26 06:05] LABS: MCV 86.6 fL (80.0-100.0)
--- NOTE | 2016-11-26 07:10 | NUR ---
RECEIVED REPORT. ASSUMED CARE OF PATIENT. CALL LIGHT WITHIN REACH. RESTING WITH EYES CLOSED. RESP EVEN AND UNLABORED. EASILY AROUSED. DENIES NEEDS AT THIS TIME. CALL LIGHT WITHIN REACH. IV FLUIDS AT KVO. NO DISTRESS.
[2016-11-26 08:00] VITALS: BP 175/79
--- NOTE | 2016-11-26 08:48 | NUR ---
Patient Name: DAVIDSON ERNST Encounter No: [id number] : 1955 Primary Insurance: [employer] Anticipated DC Date: 11-25-2016 Planned Disposition: Mcfp Facility External Planned Provider[facility] DCP follow-up note: CM REVIEWED CHART, PT NOT READY FOR DC TODAY; CM PAGED AND SPOKE TO LENARD GALICIA WHO ADVISED PT HAS CONSULT PENDING AND IS NOT READY TODAY. CM [facility], ; CM SPOKE TO RECEPTIONISTS OPAL IN MEETING; THEY DO NOT HAVE PHONE NUMBER TO STOP FOREST TECHNICIAN; CM WAS ADVISED TO LET FOREST TECHNICIAN WHEN THEY ARRIVE, THAT GINNING OPERATOR WILL HAVE TO BE RESCHEDULED AT A LATER DATE. WHEN STABLE FOR DISCHARGE, NOTIFY OPAL AT [facility], TO ENSURE AUTHORIZATION IS VALID, FACILITY CAN ACCEPT PT AND TO ARRANGE GINNING OPERATOR. NURSE REPORT TO BE CALLED TO [facility] "A WING", ; FAX DISCHARGE INFORMATION TO [facility] AT [phone]. REHAB VAN TO GINNING OPERATOR. Raman Aragon, CASE MANAGEMENT
--- NOTE | 2016-11-26 09:03 | NUR ---
FSBS 206. 8 UNITS HUMULIN R ADMINISTERED PER SLIDING SCALE.
[2016-11-26 09:15] LABS: FOLATE (FOLIC ACID) - SERUM 9.6 ng/mL (>3.0)
--- NOTE | 2016-11-26 11:46 | NUR ---
FSBS 188. 4 UNITS HUMULIN INSULIN ADMINISTERED PER SLIDING SCALE AT THIS TIME. NO DISTRESS.
[2016-11-26 12:00] VITALS: BP 165/83
--- NOTE | 2016-11-26 13:34 | NUR ---
WOUND CARE PROVIDED TO PERINEAL / VULVULAR ABSCESS. PATIENT TOLERATED WOUND CARE WELL. STRINGY SLOUGH NOTED FROM OPEN WOUND. FIRMNESS FROM AREA OF ABSCESS UP TO MONS PUBIS AREA NOTED ON LEFT SIDE.
--- NOTE | 2016-11-26 15:45 | NUR ---
FSBS 130. NO INSULIN PER SLIDING SCALE.
[2016-11-26 15:51] VITALS: BP 175/86
--- NOTE | 2016-11-26 17:30 | NUR ---
BP 178/86, 10MG IV LABETALOL ADMINISTERED FOR SBP > 160. BP NOW 134/63 POST ADMINISTRATION. SITTING UP IN BED WITH ATTENTION TOWARD TELEVISION. CALL LIGHT WITHIN REACH.
--- NOTE | 2016-11-26 18:33 | NUR ---
1800 AT BEDSIDE AND CULTURED LEFT VULVULAR ABSCESS. PATIENT WILL BE NPO AFTER MN FOR CT IN AM TO EVALUATE EXTEND OF ABSCESS.
--- NOTE | 2016-11-26 19:25 | NUR ---
RECEIVED REPORT, WILL ASSUME CARE OF PT, PT LAYING QUIETLY, DENIES ANY NEEDS, BED IS LOW, SRX2, CALL LIGHT IN REACH, WILL CONTINUE PLAN OF CARE
--- NOTE | 2016-11-27 03:43 | NUR ---
ARTIFICIAL FLOWERS SUPERVISOR AT BED SIDE TO OBTAIN VITALS, WILL CONT TO MONITOR.
[2016-11-27 04:51] VITALS: BP 186/89
--- NOTE | 2016-11-27 07:21 | NUR ---
PT SITTING UP IN BED DENIES ANY NEEDS WILL CONT TO MONITOR
--- NOTE | 2016-11-27 08:00 | NUR ---
PT NAUSEATED WITH VOMITTING. YELLOW IN COLOR. PT C/O GAS PAINS. NO MEDICATIONS ORDERED FOR GAS OR N/V. SHAMAR SANCHEZ APN.
[2016-11-27 08:18] LABS: BASOPHILS 0.4 % (0-2); EOSINOPHILS 3.8 % (0-7); HEMATOCRIT 36.9 % (36.0-48.0); HEMOGLOBIN 12.1 g/dL (12-16); IMMATURE GRANULOCYTES 0.4 % (0-5); LYMPHOCYTES 20.1 % (15-50); MCH 27.9 pg (26.0-34.0); MCHC 32.8 g/dL (31.0-37.0); MCV 85.2 fL (80.0-100.0); NEUTROPHILS 69.3 % (40-80); PLATELET COUNT 237 10x3/uL (130-400); RBC 4.33 10x6/uL (4.00-5.40); RDW 13.3 % (11.5-14.5); WBC 10.9 10x3/uL (4.8-10.8)
[2016-11-27 08:29] LABS: ANION GAP 11.4 mmol/L (8-16); CALCIUM 7.9 mg/dL (8.5-10.1); CARBON DIOXIDE 28.6 mmol/L (21.0-32.0); PHOSPHOROUS 3.7 mg/dL (2.5-4.9)
--- NOTE | 2016-11-27 09:00 | NUR ---
STILL NO CALL BACK FROM LAURA. PT STILL NAUSEATED AND C/O TERRIBLE GAS PAINS. DR SYED PAGED.
[2016-11-27 09:07] VITALS: BP 184/92
--- NOTE | 2016-11-27 09:07 | NUR ---
Patient Name: DAVIDSON ERNST Encounter No: [id number] : 1955 Primary Insurance: [employer] Anticipated DC Date: 11-25-2016 Planned Disposition: Custodial Facility External [facility], [facility] DCP follow-up note: CM REVIEWED CHART, MET WITH PT WHO IS STILL IN AGREEMENT WITH DISCHARGE TO REHAB AT [facility] WHEN STABLE. CM CAUTIONED PT THAT SHE NEEDS TO TRY TO PARTICIPATE WITH THERAPY WHEN OFFERED TWICE DAILY AND THAT INSURANCE MAY DENY REHAB IF PT IS REFUSING THERAPY. PT ASSURED CM SHE WILL TRY AND DENIES THAT SHE HAS REFUSED ANY THERAPY SESSIONS OFFERED. CM CALLED [facility], ; CM SPOKE TO OPAL AND PROVIDED UPDATE: AUTH IS GOOD THROUGH TODAY AND WILL REQUIRE NEW AUTHORIZATION FROM PT'S INSURANCE WHEN PT IS STABLE. WHEN STABLE FOR DISCHARGE, NOTIFY OPAL AT [facility], TO [facility] FOR NEW REHAB AUTHORIZATION, FACILITY CAN ACCEPT PT PENDING NEW AUTHORIZATION FROM INSURANCE AND CAN ARRANGE VAN ENVIRONMENTAL SERVICES PROJECT MANAGER. NURSE REPORT TO BE CALLED TO [facility] "A WING", ; FAX DISCHARGE INFORMATION TO [facility] AT [phone]. REHAB VAN TO ENVIRONMENTAL SERVICES PROJECT MANAGER. Raman Aragon, CASE MANAGEMENT
--- NOTE | 2016-11-27 11:21 | NUR ---
STUDENT NURSE PERFORMED PT SITZ BATH. PT HAS BROWN DRAINAGE COMING FROM ABCESS. LAURA VASQUEZ AWARE.
[2016-11-27 12:08] VITALS: BP 171/96
[2016-11-27 16:32] VITALS: BP 171/97
--- NOTE | 2016-11-27 17:57 | NUR ---
PT SITTING UP IN BED DENIES NEEDS
--- NOTE | 2016-11-27 19:35 | NUR ---
RECEIVED REPORT, PT DENIES ANY NEEDS AT THIS TIME, BED IS LOW, SRX2, CALL LIGHT IN REACH, WILL CONTINUE PLAN OF CARE
--- NOTE | 2016-11-27 19:57 | NUR ---
BLOODSUGAR IS 163, WILL NOT COVER PT IS NPO
[2016-11-27 23:32] VITALS: BP 151/78
--- NOTE | 2016-11-27 23:33 | NUR ---
BLOODSUGAR 106, NO COVERAGE NEEDED
--- NOTE | 2016-11-28 01:33 | NUR ---
CALL LIGHT IN REACH, WILL CONTINUE WITH PLAN OF CARE.
--- NOTE | 2016-11-28 02:36 | NUR ---
ASSESSMENT COMPLETE, SEE FLOWSHEET, PT C/O OF ABDOMEN PAIN, GAVE NORCO ORDER, BED IS LOW, SRX2, BED ALARM IS ON, WILL CONTINUE PLAN OF CARE
--- NOTE | 2016-11-28 04:11 | NUR ---
BLOODSUGAR-99, NO COVERAGE NEEDED
[2016-11-28 06:24] VITALS: BP 171/86
[2016-11-28 06:31] LABS: MAGNESIUM - SERUM 2.4 mg/dL (1.8-2.4); PHOSPHOROUS 3.9 mg/dL (2.5-4.9)
--- NOTE | 2016-11-28 07:19 | NUR ---
PT SITTING UP TO CHAIR DENIES ANY NEEDS. PT IS SCHEDULED FOR SURGERY AT 1200. PT IS NPO AFTER MIDNIGHT, SIGN ON DOOR. WILL CONT TO MONITOR
--- NOTE | 2016-11-28 08:36 | NUR ---
Patient Name: DAVIDSON ERNST Encounter No: [id number] : 1955 Primary Insurance: [employer] Anticipated DC Date: 11-25-2016 Planned Disposition: Care Home Facility External Planned Provider: [facility], MEDICARE REHAB BED DCP follow-up note: CM REVIEWED CHART, CM FAXED UPDATE TO [facility], , ARLINE JOSEPH. PT WILL REQUIRE NEW AUTHORIZATION FROM PT'S INSURANCE WHEN PT IS STABLE FOR REHAB PLACEMENT WHEN STABLE FOR DISCHARGE, NOTIFY OPAL AT [facility], TO [facility] FOR NEW REHAB AUTHORIZATION, FACILITY CAN ACCEPT PT PENDING NEW AUTHORIZATION FROM INSURANCE AND CAN ARRANGE VAN BELLY DUMP DRIVER. NURSE REPORT TO BE CALLED TO [facility] "A WING", ; FAX DISCHARGE INFORMATION TO [facility] AT [phone]. REHAB VAN TO BELLY DUMP DRIVER. Raman Aragon, CASE MANAGEMENT
[2016-11-28 08:42] VITALS: BP 163/80
[2016-11-28 11:57] VITALS: BP 163/88
--- NOTE | 2016-11-28 12:52 | NUR ---
Nutrition follow-up: Pt NPO for surgery today. PO intake of ADA diet has been ~60% average of meals Labs reviewed Wt: 168# +BM, loose RDN following pts progress.
[2016-11-28 16:06] VITALS: BP 149/84
--- NOTE | 2016-11-28 16:20 | NUR ---
PT STILL HASNT GONE TO SURGERY YET. HAS BEEN UP TO CHAIR SINCE 1400. C/O GAS PAIN STILL. NOT TIME FOR MORE SIMETHICONE. ASKED LAURA VASQUEZ FOR AN INCREASE AND SHE SAID TO WAIT UNTIL DR SYED SEES PT. PT DID HAVE BM YESTERDAY BUT NOT TODAY. LAURA SAID THAT IF WE GIVE HER SOMETHING STRONGER IT MAY MAKE PT RELEASE BOWELS DURING SURGERY. PT IS UNDERSTANDING ABOUT THIS AND AGREES SHE DOES NOT WANT TO HAVE BM DURING SURGERY. PT STATES THAT BEING UP TO THE CHAIR AND DOING SOME MOVEMENT IS HELPFUL MOUTH SWABS PROVIDED WILL CONT TO MONITOR
--- NOTE | 2016-11-28 17:00 | NUR ---
I HAVE CALLED SURGERY SEVERAL TIMES TODAY ABOUT PT STATUS TO GO TO SURGERY. PT WAS SCHEDULED AT 1200. THEY REPLIED EACH TIME THAT THEY WOULD GET TO HER, THEY WERE SEVERELY BACKED UP. ASKED IF PT COULD HAVE LIGHT BREAKFAST AND LUNCH AT LUNCH TIME. SAID NO BOTH TIMES. DR COBIAN CALLED AND SAID TO CANCEL SURGERY FOR TODAY AND FEED PT AT 1700. 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 PT IS VERY ANGRY THAT THEY "MADE HER STARVE ALL DAY LONG". APOLOGIZED TO PT SEVERAL TIMES. PT ATE 100% OF DINNER MEAL.
--- NOTE | 2016-11-28 18:33 | NUR ---
HELPED PT BACK TO BED AT THIS TIME. HAD TO GET CONSENTS FOR TOMORROWS PROCEDURE RE-SIGNED R/T CONSENTS ONLY BEING GOOD FOR 24 HOURS. CONSENTS ARE SIGNED AND ON THE PT CHART.
--- NOTE | 2016-11-28 19:51 | NUR ---
RECEIVED REPORT, WILL ASSUME CARE OF PT, PT ON BEDSIDE COMMODE HAVING BM, ASSIST BACK TO BED, BED IS LOW, SRX2, CALL LIGHT IN REACH, WILL CONTINUE TO MONITOR
--- NOTE | 2016-11-28 19:59 | NUR ---
BLOODSUGAR 181- PT DOESNT WANT COVERAGE, BECAUSE WILL BE NPO
[2016-11-28 20:00] VITALS: BP 169/81
--- NOTE | 2016-11-28 23:39 | NUR ---
BLOODSUGAR-187, NO COVERAGE PT NPO FOR PROCEDURE
[2016-11-29] VITALS (8 sets, daily range): BP systolic 118–185; BP diastolic 66–95
--- NOTE | 2016-11-29 01:30 | NUR ---
ASSESSMENT COMPLETE, SEE FLOWSHEET, PARTNER MARKETING INTERN IN ROOM ASSISTING TO BEDSIDE COMMODE, PT DENIES ANY OTHER NEEDS AT THIS TIME, CALL LIGHT IN REACH, WILL CONTINUE TO MONITOR
--- NOTE | 2016-11-29 03:09 | NUR ---
CARTOON DESIGNER GAVE HIBACLENS/LINEN CHANGE
--- NOTE | 2016-11-29 04:51 | NUR ---
BLOOD AND PLASMA LABORATORY ASSISTANT AT BEDSIDE TO OBTAIN VITALS, CALL LIGHT IN REACH. WILL CONTINUE WITH PLAN OF CARE.
--- NOTE | 2016-11-29 04:53 | NUR ---
BLOODSUGAR 211, DIDNT COVER PT IS NPO
[2016-11-29 05:08] LABS: MAGNESIUM - SERUM 2.3 mg/dL (1.8-2.4); PHOSPHOROUS 3.6 mg/dL (2.5-4.9)
--- NOTE | 2016-11-29 06:27 | NUR ---
PRE OP IS COMPLETE
--- NOTE | 2016-11-29 06:59 | NUR ---
PT TO SURGERY.
--- NOTE | 2016-11-29 09:23 | NUR ---
PT BACK FROM SURGERY LETHARGIC BUT ARROUSES TO VOICE VS ARE WNL. PT IS IN NO S/S DISTRESS. RR EVEN AND UNLABORED. WILL CONT TO MONITOR
--- NOTE | 2016-11-29 10:37 | NUR ---
PT STILL LETHARGIC BUT ARROUSES TO VOICE. PT VS ARE STILL WNL WILL CONT TOMNITOR
--- NOTE | 2016-11-29 14:07 | OP ---
PATIENT NAME: DAVIDSON ERNST MEDICAL RECORD: [id number] :[birth year] LOCATION:D. D.2111 ADMISSION DATE:11/09/16 SURGEON: KIANNA COBIAN MD OPERATION DATE: 11/09/16 DATE OF OPERATION: 11/29/2016 PREOPERATIVE DIAGNOSIS: Vulvar abscess. POSTOPERATIVE DIAGNOSIS: Vulvar abscess. PROCEDURE: Examination under anesthesia, Pap smear, culture of wound and excision of all necrotic tissue. SURGEON: Kianna Cobian M.D. ANESTHESIA: General. FINDINGS: Area of necrosis of skin of approximately 3 cm on the left perineum found to be tunneling to the left labia majora. ESTIMATED BLOOD LOSS: 100 cc. COMPLICATIONS OF PROCEDURE: None. OPERATIVE NOTE: The patient was taken to the OR and under adequate general anesthesia, prepped and draped in the usual manner for vaginal and vulvar procedures. Prior to prepping this area, cultures were taken, aerobic and anaerobic and a Pap smear was done and a pelvic examination revealing extensive edema of the left labia, perineum and groin. After prepping and draping, the necrotic area was excised and debrided to clear margins. An area tunneling towards the left labia majora was found. Left labia majora was then incised and debrided. No necrotic tissue was found in this area. All tissue was sent to pathology for further evaluation. Hemostasis was obtained with electrocautery. Tissues at the base of the abscess appeared viable and clean of all necrosis. Both areas were packed with 2-0 Kerlix to be changed twice daily. At the end of procedure, the patient was taken to the recovery area in good condition. TRANSINT:[id number] Voice Confirmation ID: [id number] DOCUMENT ID: [id number] KIANNA COBIAN MD at 1407 CC: [id number] DICTATION DATE: 11/29/16 0852 HISTORIAN DRAMATIC ARTS: 11/29/16 0922 [place] [address]
--- NOTE | 2016-11-29 14:44 | NUR ---
OT NOTE: PT COMPLETED SELF FEEDING. SHARMA NOTED PT COUGHING DURING MEAL. SHARMA REPORTED TO NURSING. PT COMPLETED BED MOB WITH CGA. PT COMPLETED BUE AROM AXS FOR INCREASED I WITH ADLS. THANK YOU, EDITH MARTIN/Cassiyd
--- NOTE | 2016-11-29 18:04 | NUR ---
PT SITTING UP IN BED SLEEPING NO S/S DISTRESS NOTED RR EVEN AND UNLABORED.
--- NOTE | 2016-11-29 19:25 | NUR ---
RECEIVED REPORT, WILL ASSUME CARE OF PT, PT IS SLEEPING ON R.SIDE, BED IS LOW, SRX2, CALL LIGHT IN REACH, WILL CONTINUE PLAN OF CARE
--- NOTE | 2016-11-29 20:24 | NUR ---
BLOODSUGAR 254, COVERED 10 UNIT OF HUMLOG, WILL MONITOR
--- NOTE | 2016-11-29 23:44 | NUR ---
BLOODSUGAR-152, PT DOESNT WANT COVERAGE
[2016-11-30] VITALS: BP 125/71
--- NOTE | 2016-11-30 00:04 | NUR ---
ASSESSMENT COMPLETE, SEE FLOW SHEET, PT SLEEPING ON L.SIDE, BED IS LOW, SRX2, CALL LIGHT IN REACH, WILL CONTINUE TO MONITOR
--- NOTE | 2016-11-30 02:48 | NUR ---
BARBARA GAVE BED BATH/ LINEN CHANGE, REDD IVERSON ASSIST WI WOUND CARE, FOLLOW ORDER, WILL GIVE NORCO ORDER, WILL CONTINUE TO MONITOR
--- NOTE | 2016-11-30 03:57 | NUR ---
BLOODSUGAR-204 COVERED 8 UNIT JANIE Alfredo
[2016-11-30 04:00] VITALS: BP 157/71
--- NOTE | 2016-11-30 07:15 | NUR ---
RECEIVED REPORT. ASSUMED CARE OF PATIENT. PATIENT OOB TO BEDSIDE COMMODE. RESP EVEN AND UNLABORED. DENIES NEEDS AT THIS TIME. STATES PAIN TO I&D AREA IS TOLERABLE BUT WOULD LIKE PAIN MEDICATION PRIOR TO DRESSING CHANGE. NO DISTRESS. CALL LIGHT WITHIN REACH.
[2016-11-30 08:10] VITALS: BP 135/80
[2016-11-30 11:27] VITALS: BP 139/80
--- NOTE | 2016-11-30 11:27 | NUR ---
FSBS 232. 8 UNITS HUMULIN INSULIN ADMINISTERED PER SLIDING SCALE. NO DISTRESS.
--- NOTE | 2016-11-30 13:04 | NUR ---
MEDICATED PRIOR TO DRESSING CHANGE TO PERINEAL AREA.
--- NOTE | 2016-11-30 13:46 | NUR ---
WOUND CARE COMPLETED TO PERINEAL I&D AT THIS TIME. PATIENT RESTING COMFORTABLY. NO DISTRESS. CALL LIGHT WITHIN REACH.
--- NOTE | 2016-11-30 14:30 | NUR ---
MEPILEX HEART SHAPED DRESSING APPLIED TO SACRUM/COCCYX AREA. APPROXIMATE AREA 2.5 X 0.8 WOUND BED IS COMPLETLEY COVERED WITH PALE YELLOW SLOUGH. DENIES PAIN. NO DISTRESS. PATIENT STATES AREA FEELS BETTER WITH DRESSING INTACT.
[2016-11-30 15:16] VITALS: BP 151/81
--- NOTE | 2016-11-30 16:03 | NUR ---
FSBS 108. NO INSULIN PER SLIDING SCALE.
--- NOTE | 2016-11-30 18:31 | NUR ---
PATIENT SITTING UP TO CHAIR AT THIS TIME. NO DISTRESS. CALL LIGHT WITH IN REACH. NO DISTRESS.
--- NOTE | 2016-11-30 19:25 | NUR ---
RECEIVED REPORT, WILL ASSUME CARE OF PT, PT SITTING UP IN CHAIR, DENIES ANY NEEDS AT THIS TIME, CALL LIGHT IN REACH, WILL CONTINUE PLAN OF CARE
[2016-11-30 20:00] VITALS: BP 139/77
--- NOTE | 2016-11-30 20:18 | NUR ---
BLOODSUGAR-255- COVERED 10 UNITS HUMULIN R. WILL CONTINUE TO MONITOR
--- NOTE | 2016-11-30 23:48 | NUR ---
BLOODSUGAR-186, GAVE 4 UNITS HUMULIN R
[2016-12-01] VITALS: BP 141/73
--- NOTE | 2016-12-01 01:31 | NUR ---
ASSESSMENT COMPLETE, SEE FLOW SHEET, BED IS LOW, SRX2, CALL LIGHT IN REACH, WILL CONTINUE TO MONITOR
[2016-12-01 04:00] VITALS: BP 153/76
--- NOTE | 2016-12-01 04:20 | NUR ---
TOP CARRIER ASSIST PT IN SHOWER, PT DID WELL, DID DRESSING CHANGE, WILL CONTINUE TO MONITOR
[2016-12-01 06:17] LABS: BASOPHILS 0.3 % (0-2); EOSINOPHILS 6.4 % (0-7); HEMATOCRIT 31.4 % (36.0-48.0); HEMOGLOBIN 10.1 g/dL (12-16); IMMATURE GRANULOCYTES 0.1 % (0-5); LYMPHOCYTES 22.6 % (15-50); MCH 27.7 pg (26.0-34.0); MCHC 32.2 g/dL (31.0-37.0); MEAN PLATELET VOLUME 10.3 fL (7.4-10.4); MONOCYTES 6.7 % (2-11); NEUTROPHILS 63.9 % (40-80); PLATELET COUNT 270 10x3/uL (130-400); RBC 3.65 10x6/uL (4.00-5.40); WBC 9.1 10x3/uL (4.8-10.8)
[2016-12-01 06:38] LABS: CALCIUM 7.9 mg/dL (8.5-10.1); CARBON DIOXIDE 31.2 mmol/L (21.0-32.0); POTASSIUM - SERUM 4.2 mmol/L (3.5-5.1)
[2016-12-01 07:47] VITALS: BP 157/82
--- NOTE | 2016-12-01 08:14 | NUR ---
HERE TO EXAMINE PATIENT. ASSISTED PATIENT WITH REPOSITIONING. NO DISTRESS.
--- NOTE | 2016-12-01 08:47 | NUR ---
FSBS 205. HUMUNLIN INSULIN ADMINISTERED PER SLIDING SCALE. PATIENT ALSO AMBULATED 325 FT WITH PT AT THIS TIME. NO DISTRESS.
--- NOTE | 2016-12-01 09:04 | NUR ---
REQUESTED FOR DIVING JUDGE TO BRING EGGCRATE MATTRESS FOR BED PER .
--- NOTE | 2016-12-01 09:22 | NUR ---
COMPLETE BED CHANGE AND EGGCRATE OVERLAY PLACED ON PATIENT BED AT THIS TIME. NO DISTRESS. SITTING TO CHAIR AT BEDSIDE. CALL LIGHT WITHIN REACH.
--- NOTE | 2016-12-01 11:25 | NUR ---
FSBS 205. 8 UNITS HUMULIN ADMINISTERED PER SLIDING SCALE. NO DISTRESS.
[2016-12-01 11:41] VITALS: BP 159/71
--- NOTE | 2016-12-01 15:13 | NUR ---
PREMEDICATED FOR PAIN FOR DRESSING CHANGE TO PERINEAL AREA. SITTING IN CHAIR AT BEDSIDE AT THIS TIME. NO DISTRESS.
[2016-12-01 16:12] VITALS: BP 153/69
--- NOTE | 2016-12-01 16:37 | NUR ---
WOUND CARE TO PERINEAL AREA COMPLETED. TOLERATED DRESSING CHANGE WELL. PATIENT SITTING TO CHAIR AT BEDSIDE FOR PM MEAL AT THIS TIME. FSBS 99. NO INSULIN COVERAGE REQUIRED.
[2016-12-01 19:00] VITALS: BP 155/86
--- NOTE | 2016-12-01 19:30 | NUR ---
RECEIVED REPORT, WILL ASSUME CARE OF PT, LAYING QUIETLY ON L. SIDE, BED IS LOW, SRX2, CALL LIGHT IN REACH, PT DENIES ANY NEEDS AT THIS TIME
--- NOTE | 2016-12-02 00:53 | NUR ---
WOUND CLEANED AND DRESSING
--- NOTE | 2016-12-02 01:05 | NUR ---
CALL LIGHT IN REACH, WILL CONTINUE WITH PLAN OF CARE.
[2016-12-02 04:00] VITALS: BP 179/87
--- NOTE | 2016-12-02 04:14 | NUR ---
ASSESSMENT COMPLETE, SEE FLOWSHEET, BED IS LOW, SRX2, CALL LIGHT IN REACH, WILL CONTINUE TO MONITOR
[2016-12-02 06:08] LABS: BASOPHILS 0.6 % (0-2); EOSINOPHILS 7.7 % (0-7); HEMATOCRIT 33.7 % (36.0-48.0); HEMOGLOBIN 10.6 g/dL (12-16); IMMATURE GRANULOCYTES 0.1 % (0-5); LYMPHOCYTES 25.4 % (15-50); MCH 27.2 pg (26.0-34.0); MCHC 31.5 g/dL (31.0-37.0); MCV 86.4 fL (80.0-100.0); MEAN PLATELET VOLUME 10.7 fL (7.4-10.4); MONOCYTES 5.8 % (2-11); NEUTROPHILS 60.4 % (40-80); PLATELET COUNT 304 10x3/uL (130-400); RDW 13.2 % (11.5-14.5); WBC 8.8 10x3/uL (4.8-10.8)
[2016-12-02 06:23] LABS: CALC OSMOLALITY 286 mosm/kg (275-300); CALCIUM 8.1 mg/dL (8.5-10.1); CARBON DIOXIDE 31.1 mmol/L (21.0-32.0); CHLORIDE - SERUM 106 mmol/L (98-107); CREATININE - SERUM 0.8 mg/dL (0.6-1.3); GLUCOSE 141 mg/dL (74-106); POTASSIUM - SERUM 3.8 mmol/L (3.5-5.1); SODIUM 143 mmol/L (136-145); UREA NITROGEN 13 mg/dL (7-18); eGFR NON AFRICAN AMERICAN 77 mL/min (90-120)
--- NOTE | 2016-12-02 07:32 | NUR ---
AM ROUNDS - PT APPEARS TO BE SLEEPING WITH EQUAL AND NON LABORED BREATHING. SCD ARE OFF AT THIS TIME. PT HAS A YELLOW BAND ON. NON SKID SOCKS ON. LEFT UPPER MIDLINE, SL. EGG CRATE ON BED. BED AT LOWEST POSITION. CALL JENSEN IN USE/REACH. SIDE RAILS UP X2. WILL CONTINUE TO MONITOR
[2016-12-02 08:00] VITALS: BP 189/92
--- NOTE | 2016-12-02 09:14 | NUR ---
Patient Name: DAVIDSON ERNST Encounter No: [id number] : 1955 Primary Insurance: [employer]CRSOL Anticipated DC Date: 11-25-2016 Planned Disposition: Chcf Facility External Planned Provider: [facility], MEDICARE REHAB BED DCP follow-up note: CM SPOKE TO PT IN ROOM WHO IS STILL IN AGREEMENT WITH [facility] CM FAXED UPDATE TO [facility], , ATTENTION OPAL. PT WILL REQUIRE NEW AUTHORIZATION FROM PT'S INSURANCE FOR REHAB PLACEMENT. ELDON CALLED AND NOTIFIED OPAL AT [facility], WHO WILL SCREEN REFERRAL AND SUBMIT FOR NEW INSURANCE AUTHORIZATION. CM WAITING ADMISSION DETERMINATION FROM [facility] WELL INSURANCE AUTHORIZATION FOR REHAB PLACEMENT. TRELL LANDIN, CASE MANAGEMENT
--- NOTE | 2016-12-02 11:41 | NUR ---
Patient Name: DAVIDSON ERNST Encounter No: [id number] : 1955 Primary Insurance: [employer]HCMCRSOL Anticipated DC Date: 12-02-2016 Planned Disposition: Assisted Facility External Planned Provider: [facility], MEDICARE REHAB BED DCP follow-up note: CM RECEIVED CALL FROM OPAL AT [facility], WHO REPORTS HAVING INSURANCE REHAB AUTHORIZATION, FACILITY CAN ACCEPT PT TODAY, VAN TO EFFICIENCY MINER AT 1300 HOURS TODAY. CM NOTIFIED PT WHO IS IN AGREEMENT WITH DISCHARGE TO REHAB, IMPORTANT MESSAGE FROM MEDICARE PROVIDED AND EXPLAINED. CM CALLED PAOLO AT [phone] WHO IS IN AGREEMENT WITH DISCHARGE TO [facility] AT IT IS WHAT THE DOCTOR THINKS PT NEEDS AND DOESN'T WANT PT TO BE THERE FOR ANY LONG THAN SHE NEEDS TO. FAX DISCHARGE INFORMATION TO [facility] AT [phone]. NURSE REPORT TO BE CALLED TO [facility] "A WING", ; REHAB VAN TO EFFICIENCY MINER AT 1300 TODAY. Raman Aragon, CASE MANAGEMENT
--- NOTE | 2016-12-02 12:48 | NUR ---
CALLED DR. COBIAN TO VERIFY THAT IS IT OK TO D/C PT. THE ANSWERING SERVICE WOULD NOT PAGE DR. COBIAN STATING THAT "WE DO NOT PAGE DOCTORS DURING LUNCH HOUR AND SHE WILL BE BACK FROM LUNCH AT 1330." I EXPLAINED THAT THE PT WAS TO BE PICKED UP AROUND 1300 AND RANDY CALDWELL WANTED TO MAKE SURE THAT DR. COBIAN WAS OK TO D/C PT. AFTER EXPLAINING THIS TO THE ANSWERING SERVICE, THEY CONNECTED ME TO DR. COBIAN'S BACK OFFICE. I EXPLAINED THE SITUACTION ONCE AGAIN AND I WAS TOLD THAT THEY DO NOT PAGE DOCTORS DURING THE LUNCH HOUR AND THAT DR. COBIAN WOULD HAVE TO CALL ME BACK WHEN SHE RETTURNS FROM LUNCH AFTER 1330. INFORMED CASE MANAGEMENT. WILL CONTINUE TO MONITOR.
--- NOTE | 2016-12-02 14:28 | NUR ---
LAST DOSE OF ANTIBIOTIC COMPLETE. ORDER FOR MIDLINE REMOVAL RECIEVED FROM RALPH VASQUEZ. DRESSING REMOVED AND SITE CLEANSE WITH BETADINE. NO SIGNS OF BLEEDING OR INFECTION NOTED AT SITE. MIDLINE CATH REMOVED AT 13 CMS WITH TIP INTACT. NO SIGNS OF INFECTION ON TIP. 4X4 DRESSING WTIH TEGADERM. PT INSTRUCTED TO KEEP DRESSING CLEAN&DRY AND TO TELL NURSES AT FACILITY OF ANY SIGNS OF BLEEDING OR INFECTION.
--- NOTE | 2016-12-02 14:36 | NUR ---
CALLED [facility] TO GIVE REPORT. NURSE WAS NOT AVAILABLE TO GET REPORT. AWAITING CALL FRANCO TO GIVE REPORT
--- NOTE | 2016-12-02 15:35 | NUR ---
CALLED REPORT TO [facility], LIO MANN. PT LEFT FLOOR VIA WHEELCHAIR WITH [facility]. WILL D/C
== END 2016-12-02 15:44 | DRG 622 ==
LOC: D.ER 05:44 → D.ICU 07:42 → D.M2 07:42
PROVIDERS: Emergency Medicine; Family Medicine; Internal Medicine Nephrology; Obstetrics & Gynecology; ADMIT Family Medicine
PROC: 05HC33Z Insertion of Infusion Device into Left Basilic Vein, Percutaneous Approach (ICD-10-PCS; principal; 2016-11-13)
PROC: B54NZZA Ultrasonography of Left Upper Extremity Veins, Guidance (ICD-10-PCS; 2016-11-13)
PROC: 0HBAXZZ Excision of Inguinal Skin, External Approach (ICD-10-PCS; 2016-11-13)
PROC: 0T9B70Z Drainage of Bladder with Drainage Device, Via Natural or Artificial Opening (ICD-10-PCS; 2016-11-16)
DX: E13.10 Other specified diabetes mellitus with ketoacidosis without coma (principal); G93.41 Metabolic encephalopathy; N17.9 Acute kidney failure, unspecified; B37.49 Other urogenital candidiasis; E87.0 Hyperosmolality and hypernatremia; N76.4 Abscess of vulva; Z79.4 Long term (current) use of insulin; I10 Essential (primary) hypertension; E87.6 Hypokalemia; E88.09 Other disorders of plasma-protein metabolism, not elsewhere classified; B95.7 Other staphylococcus as the cause of diseases classified elsewhere; R53.1 Weakness

== ENCOUNTER 2017-05-13 11:46 | Inpatient (IN) | payer MEDICARE ==
[~2017-05-13] VITALS: Ht 167.6 cm; Wt 62.6 kg
--- NOTE | ~2017-05-13 | DS ---
PATIENT:DAVIDSON ERNST :51 MEDICAL RECORD: [id number] DISCHARGE SUMMARY ADMISSION DATE: 05/13/17 DISCHARGE DATE: 05/16/17 DATE OF ADMISSION: 05/13/2017. DATE OF DISCHARGE: 05/16/2017. ADMISSION DIAGNOSES: Uncontrolled diabetes, increased confusion, poor self-care at home. DISCHARGE DIAGNOSES: Uncontrolled diabetes, hypertension, poor self-care, limited ability to care for herself at home, chronic draining cyst left labia. CONSULTS: General surgery. PROCEDURES: CT of the head showed chronic small vessel disease, no acute changes. Renal ultrasound was obtained with her chronic kidney disease and prior history of hydronephrosis, showed no significant change, again signs of chronic kidney disease and unchanged mild hydronephrosis unilateral. HOSPITAL COURSE: The patient was admitted through the Emergency Room as unassigned medicine. Her primary care physician is a doctor in [place]. She was confused. Blood sugars were uncontrolled with glucose of 522. No serum ketones. The patient was admitted. Studies obtained, finding of the draining cyst left labial. Surgery consulted. Wound was draining. No I&D required. Wound packing done, started on IV clindamycin and changed to oral clindamycin. The patient has agreed to [facility] placement. Glucose controlled with regimented insulin. Blood cultures have been negative to date. Wound cultures pending. DISPOSITION: The patient is discharged to [facility] in significantly improved condition. PHYSICAL EXAMINATION: VITAL SIGNS ON DISCHARGE: Temperature 99, blood pressure is 177/82, heart rate 99, respirations 20, and O2 sats 97%. GENERAL: She is alert to person, answers appropriately. HEART: Regular rate and rhythm. LUNGS: Clear. ABDOMEN: Soft, nontender. Bowel sounds positive. EXTREMITIES: Present times 4. NEUROLOGIC: No focal deficits. SKIN: Warm and dry. No rash. DISCHARGE MEDICATIONS: We will add amlodipine 5 mg p.o. daily to her lisinopril with further adjustments made at the [facility]. TRANSINT:[id number] Voice Confirmation ID: [id number] DOCUMENT ID: [id number] DISCHARGE SUMMARY REPORT [id number] DAVIDSON ERNST LOBITO MEYERS DO at 1922 CC: [id number] DICTATION DATE: 05/16/17 0800 [employer] MANAGER: 05/16/17 1250 DIS IN 05/16/17 [facility] [address] [place] [address]
--- NOTE | ~2017-05-13 | HP ---
PATIENT: DAVIDSON ERNST MEDICAL RECORD: [id number] ACCOUNT: [id number] LOCATION:D.[id number] : 51 ADMISSION DATE: 05/13/17 HISTORY AND PHYSICAL EXAMINATION HISTORY OF PRESENT ILLNESS: A 61-year-old -[place] female presented to the Emergency Room with increased confusion, reports blood sugars out of control, he has history of sporadic compliance with her medications. Her primary care physician is in [place]. PAST MEDICAL HISTORY: Significant for diabetes, hypertension, neuropathy, history of hysterectomy, total abdominal hysterectomy with bilateral salpingo-oophorectomy, limited historian. ALLERGIES: No known drug allergies. CURRENT MEDICATIONS: Reported as Lantus, lisinopril, and gabapentin. REVIEW OF SYSTEMS: GENERAL: No known change in weight or appetite. HEENT: Denies cephalgia, visual changes, tinnitus, epistaxis, or dysphagia. CARDIOVASCULAR: Denies chest pain or palpitations. PULMONARY: Denies hemoptysis, denies night sweats. GASTROINTESTINAL: Denies hematemesis, hematochezia, or melena. GENITOURINARY: Denies dysuria, denies change in frequency. MUSCULOSKELETAL: Denies any acute changes. PHYSICAL EXAMINATION: VITAL SIGNS: Temp 98.1, blood pressure of 140/89, heart rate 99, respirations 17, O2 sats 99% on room air. Blood pressure on admission was 191/111. GENERAL: The patient is alert to person, knows she is in the hospital in [place], knows she lives with her friend, Adryan, and knows her primary care physician is in [place]. HEENT: Normocephalic, atraumatic. Eyes: Pupils are equally round and reactive. Ears: Canals patent, TMs are intact. Nose: Nares patent without drainage. Throat: No erythema, no exudates. NECK: Supple. No lymphadenopathy, no JVD. HEART: Regular rate and rhythm. LUNGS: Clear to auscultation bilaterally. Breathing is nonlabored. ABDOMEN: Soft, nontender. Bowel sounds all 4 quadrants. EXTREMITIES: Present times 4. No edema. NEUROLOGIC: No appreciable focal deficits, slow to respond. LABORATORY DATA: Urine drug screen is negative. Urinalysis: Yellow, cloudy, pH 5, specific gravity 1.02, proteins 3+, ketones small, nitrites negative, leukocyte esterase negative, few bacteria. Urine culture pending. Blood culture pending. CBC: White count 9.8, hemoglobin 11.4, hematocrit 33.6, platelets 255. Sodium 133, potassium 4.3, chloride 96, bicarbonate 27, BUN 22, creatinine 1.3, glucose on admission was 522. No imaging obtained. In the Emergency Room, no blood gas was obtained. ASSESSMENT AND PLAN: Uncontrolled diabetes, uncontrolled hypertension, reported acute mental status change. The patient is admitted. We will obtain EKG and echocardiogram. We will restart her Lantus 10 units at bedtime, sliding scale intermediate insulin q.i.d. Prior CT of her head showed small vessel disease. HISTORY AND PHYSICAL [id number] DAVIDSON ERNST With mental status change, we will repeat CT head without, case assistant for possible placement options after the patient stabilizes. We will also obtain psych eval. Empiric antibiotics. Urine and blood cultures. TRANSINT:[id number] Voice Confirmation ID: [id number] DOCUMENT ID: [id number] LOBITO BORREGO DO at 0755 CC: [id number] DICTATION DATE: 05/14/17 0756 RESTAURANT BUSSER: 05/14/17 1035 ADM IN [facility] [address] [place] [address]
[~2017-05-13 11:46] MED LIST changes: +DIFLUCAN200 MG PO; +FLORAJEN3 CAPS460 MG PO; +MIRALAX17 GM PO
[2017-05-13 12:21] LABS: BASOPHILS 0.2 % (0-2); EOSINOPHILS 0.3 % (0-7); HEMATOCRIT 33.6 % (36.0-48.0); HEMOGLOBIN 11.4 g/dL (12-16); IMMATURE GRANULOCYTES 0.5 % (0-5); LYMPHOCYTES 22.2 % (15-50); MCH 28.3 pg (26.0-34.0); MCHC 33.9 g/dL (31.0-37.0); MCV 83.4 fL (80.0-100.0); MEAN PLATELET VOLUME 10.5 fL (7.4-10.4); MONOCYTES 5.9 % (2-11); NEUTROPHILS 70.9 % (40-80); PLATELET COUNT 255 10x3/uL (130-400); RBC 4.03 10x6/uL (4.00-5.40); WBC 9.8 10x3/uL (4.8-10.8)
[2017-05-13 12:50] LABS: ALBUMIN 2.3 g/dL (3.4-5.0); ANION GAP 14.3 mmol/L (8-16); BILIRUBIN - TOTAL 0.34 mg/dL (0.2-1.3); CALCIUM 9.4 mg/dL (8.5-10.1); CREATININE - SERUM 1.3 mg/dL (0.6-1.3); POTASSIUM - SERUM 4.3 mmol/L (3.5-5.1); PROTEIN - SERUM 7.3 g/dL (6.4-8.2)
[2017-05-13 13:30] LABS: APPEARANCE CLOUDY (CLEAR); BILIRUBIN NEGATIVE (NEGATIVE); COLOR YELLOW (YELLOW); GLUCOSE 1000 mg/dL (NEGATIVE); KETONE SMALL mg/dL (NEGATIVE); NITRITE NEGATIVE (NEGATIVE); PROTEIN 3+ mg/dL (NEGATIVE); UROBILINOGEN NORMAL (NORMAL)
[2017-05-13 13:31] LABS: BACTERIA FEW /hpf (NONE SEEN); EPITHELIAL CELLS 0-5 /hpf (0-5); RED CELLS - URINE 0-5 /hpf (0-5); WHITE CELLS - URINE OCC /hpf (0-5); YEAST >1+ /hpf (NONE SEEN)
[2017-05-13 13:32] LABS: MUCUS <1+ /lpf (NONE SEEN)
[2017-05-14 00:57] LABS: UDS - AMPHET NEGATIVE QUAL (NEGATIVE); UDS - BARB NEGATIVE QUAL (NEGATIVE); UDS - BENZO NEGATIVE QUAL (NEGATIVE); UDS - COCAINE NEGATIVE QUAL (NEGATIVE); UDS - OPIATE NEGATIVE QUAL (NEGATIVE); UDS - PCP NEGATIVE QUAL (NEGATIVE); UDS - THC NEGATIVE QUAL (NEGATIVE)
[2017-05-14 04:47] VITALS: BP 140/89; BMI 22.3
[2017-05-14 05:53] VITALS: BP 140/89
[2017-05-14 08:44] VITALS: BP 170/80
[2017-05-14 10:48] LABS: CKMB 0.4 U/L (0.0-3.6)
[2017-05-14 10:52] LABS: HEMOGLOBIN A1C 9.4 % (4.8-6.0)
[2017-05-14 10:55] LABS: TROPONIN-I < 0.017 ng/mL (0.000-0.060)
[2017-05-14 11:53] VITALS: BP 183/88
[2017-05-14 14:06] VITALS: BMI 22.2
[2017-05-14 16:17] VITALS: BP 165/87
[2017-05-14 20:00] VITALS: BP 155/66
[2017-05-15] VITALS: BP 149/62
[2017-05-15 06:05] LABS: BASOPHILS 0.1 % (0-2); EOSINOPHILS 0.5 % (0-7); HEMATOCRIT 29.5 % (36.0-48.0); HEMOGLOBIN 9.9 g/dL (12-16); IMMATURE GRANULOCYTES 0.3 % (0-5); LYMPHOCYTES 18.6 % (15-50); MCH 27.7 pg (26.0-34.0); MCHC 33.6 g/dL (31.0-37.0); MCV 82.4 fL (80.0-100.0); MEAN PLATELET VOLUME 10.6 fL (7.4-10.4); MONOCYTES 8.1 % (2-11); NEUTROPHILS 72.4 % (40-80); PLATELET COUNT 255 10x3/uL (130-400); RBC 3.58 10x6/uL (4.00-5.40); RDW 13.2 % (11.5-14.5); WBC 9.5 10x3/uL (4.8-10.8)
[2017-05-15 06:37] LABS: ANION GAP 13.6 mmol/L (8-16); CALCIUM 9.3 mg/dL (8.5-10.1); CARBON DIOXIDE 26.1 mmol/L (21.0-32.0); MAGNESIUM - SERUM 2.2 mg/dL (1.8-2.4); PHOSPHOROUS 3.3 mg/dL (2.5-4.9); POTASSIUM - SERUM 3.7 mmol/L (3.5-5.1)
[2017-05-15 08:33] VITALS: BP 191/98
[2017-05-15 11:56] VITALS: Ht 167.6 cm; Wt 62.6 kg
[2017-05-15 12:57] VITALS: BP 192/92
[2017-05-15 17:04] VITALS: BP 193/92
[2017-05-15 20:00] VITALS: BP 189/94
[2017-05-16 04:00] VITALS: BP 177/82
[2017-05-16 04:15] LABS: BASOPHILS 0.1 % (0-2); EOSINOPHILS 0.7 % (0-7); HEMATOCRIT 29.2 % (36.0-48.0); HEMOGLOBIN 9.8 g/dL (12-16); IMMATURE GRANULOCYTES 0.3 % (0-5); LYMPHOCYTES 19.1 % (15-50); MCH 27.8 pg (26.0-34.0); MCHC 33.6 g/dL (31.0-37.0); MCV 82.7 fL (80.0-100.0); MEAN PLATELET VOLUME 10.7 fL (7.4-10.4); MONOCYTES 8.1 % (2-11); NEUTROPHILS 71.7 % (40-80); PLATELET COUNT 288 10x3/uL (130-400); RBC 3.53 10x6/uL (4.00-5.40); RDW 13.4 % (11.5-14.5); WBC 10.1 10x3/uL (4.8-10.8)
[2017-05-16 05:02] LABS: ANION GAP 13.1 mmol/L (8-16); CALCIUM 8.7 mg/dL (8.5-10.1); CARBON DIOXIDE 26.6 mmol/L (21.0-32.0); CREATININE - SERUM 0.9 mg/dL (0.6-1.3); POTASSIUM - SERUM 3.7 mmol/L (3.5-5.1)
[2017-05-16] MEDS ORDERED: ACETAMINOPHEN325 MG PO (07:46)
[2017-05-16] MEDS ORDERED: LANTUS INSULIN10 ML SC (07:51)
[2017-05-16] MEDS ORDERED: CLEOCIN HCL300 MG PO (07:53)
[2017-05-16] MEDS ORDERED: NORVASC5 MG PO (08:02)
[2017-05-16 08:16] VITALS: BP 154/76
== END 2017-05-16 11:35 | DRG 638 ==
LOC: D.ER 11:46 → D.MS 22:35
PROVIDERS: Emergency Medicine; Family Medicine
DX: E11.65 Type 2 diabetes mellitus with hyperglycemia (principal); N76.4 Abscess of vulva; E11.40 Type 2 diabetes mellitus with diabetic neuropathy, unspecified; Z79.4 Long term (current) use of insulin; E11.22 Type 2 diabetes mellitus with diabetic chronic kidney disease; I12.9 Hypertensive chronic kidney disease with stage 1 through stage 4 chronic kidney disease, or unspecified chronic kidney disease; N18.9 Chronic kidney disease, unspecified

== ENCOUNTER 2017-07-24 09:38 | Emergency (ER) | payer MEDICARE, MEDICAID ==
[2017-05-15 11:56] VITALS: BMI 22.2
[~2017-07-24 09:38] MED LIST changes: +ACETAMINOPHEN325 MG PO; +CLEOCIN HCL300 MG PO; +LANTUS INSULIN10 ML SC; +NORVASC5 MG PO
[2017-07-24 10:44] LABS: BASOPHILS 0.3 % (0-2); EOSINOPHILS 1.7 % (0-7); HEMATOCRIT 33.4 % (36.0-48.0); HEMOGLOBIN 10.6 g/dL (12-16); IMMATURE GRANULOCYTES 1.1 % (0-5); LYMPHOCYTES 31.7 % (15-50); MCH 26.8 pg (26.0-34.0); MCHC 31.7 g/dL (31.0-37.0); MCV 84.3 fL (80.0-100.0); MEAN PLATELET VOLUME 10.8 fL (7.4-10.4); MONOCYTES 6.5 % (2-11); NEUTROPHILS 58.7 % (40-80); RBC 3.96 10x6/uL (4.00-5.40); RDW 13.3 % (11.5-14.5)
[2017-07-24 10:57] LABS: PLATELET COUNT 140 10x3/uL (130-400)
[2017-07-24 11:00] LABS: ALBUMIN 2.3 g/dL (3.4-5.0); ANION GAP 15.2 mmol/L (8-16); BILIRUBIN - TOTAL 0.18 mg/dL (0.2-1.3); CALCIUM 8.2 mg/dL (8.5-10.1); CARBON DIOXIDE 22.3 mmol/L (21.0-32.0); CREATININE - SERUM 1.2 mg/dL (0.6-1.3); POTASSIUM - SERUM 4.5 mmol/L (3.5-5.1); PROTEIN - SERUM 6.2 g/dL (6.4-8.2)
[2017-07-24 11:08] LABS: APPEARANCE HAZY (CLEAR); BILIRUBIN NEGATIVE (NEGATIVE); COLOR YELLOW (YELLOW); GLUCOSE NEGATIVE (NEGATIVE); KETONE NEGATIVE (NEGATIVE); NITRITE NEGATIVE (NEGATIVE); PROTEIN 3+ mg/dL (NEGATIVE); SPECIFIC GRAVITY 1.015 (1.005-1.020); UROBILINOGEN NORMAL (NORMAL)
[2017-07-24 11:09] LABS: AMORPHOUS SEDIMENT <1+ /lpf (NONE SEEN); BACTERIA MODERATE /hpf (NONE SEEN); EPITHELIAL CELLS 0-5 /hpf (0-5); RED CELLS - URINE 0-5 /hpf (0-5); WHITE CELLS - URINE 0-5 /hpf (0-5); YEAST >1+ /hpf (NONE SEEN)
== END 2017-07-24 15:18 | disposition home or self-care (01) ==
LOC: D.ER 09:38
PROVIDERS: Emergency Medicine
DX: I10 Essential (primary) hypertension (principal); E11.9 Type 2 diabetes mellitus without complications; Z79.4 Long term (current) use of insulin

== ENCOUNTER 2018-10-23 21:25 | Emergency (ER) | payer MEDICARE ==
[~2018-10-23] VITALS: Ht 167.6 cm; Wt 102.3 kg
[2018-10-23 21:32] VITALS: Ht 167.6 cm; Wt 102.3 kg
[2018-10-23 21:54] LABS: BASOPHILS 0.2 % (0-2); EOSINOPHILS 0.3 % (0-7); HEMOGLOBIN 12.1 g/dL (12-16); IMMATURE GRANULOCYTES 0.2 % (0-5); LYMPHOCYTES 14.2 % (15-50); MCHC 32.7 g/dL (31.0-37.0); MCV 85.6 fL (80.0-100.0); MEAN PLATELET VOLUME 11.8 fL (7.4-10.4); MONOCYTES 6.6 % (2-11); NEUTROPHILS 78.5 % (40-80); RBC 4.32 10x6/uL (4.00-5.40); WBC 9.5 10x3/uL (4.8-10.8)
[2018-10-23 22:01] LABS: ALBUMIN 2.9 g/dL (3.4-5.0); ANION GAP 15.4 mmol/L (8-16); BILIRUBIN - TOTAL 0.29 mg/dL (0.2-1.3); CALCIUM 8.6 mg/dL (8.5-10.1); CARBON DIOXIDE 20.8 mmol/L (21.0-32.0); CREATININE - SERUM 3.5 mg/dL (0.6-1.3); POTASSIUM - SERUM 4.2 mmol/L (3.5-5.1); PROTEIN - SERUM 6.9 g/dL (6.4-8.2)
[2018-10-23 22:11] LABS: MAGNESIUM - SERUM 2.3 mg/dL (1.8-2.4); THYROID STIMULATING HORMONE 2.93 uIU/mL (0.36-3.74)
[2018-10-23 22:18] LABS: PLATELET COUNT 181 10x3/uL (130-400)
[2018-10-23 22:22] LABS: APPEARANCE HAZY (CLEAR); BILIRUBIN NEGATIVE (NEGATIVE); COLOR YELLOW (YELLOW); GLUCOSE NEGATIVE (NEGATIVE); KETONE NEGATIVE (NEGATIVE); NITRITE NEGATIVE (NEGATIVE); PROTEIN 1+ mg/dL (NEGATIVE); SPECIFIC GRAVITY 1.015 (1.005-1.020); UROBILINOGEN NORMAL (NORMAL)
[2018-10-23 22:23] LABS: BACTERIA MANY /hpf (NONE SEEN); EPITHELIAL CELLS 0-5 /hpf (0-5); RED CELLS - URINE OCC /hpf (0-5)
[2018-10-24 00:26] VITALS: BP 150/81
== END 2018-10-24 01:05 | disposition other institution (70) ==
LOC: D.ER 21:25
PROVIDERS: Emergency Medicine
DX: E11.649 Type 2 diabetes mellitus with hypoglycemia without coma (principal); G93.41 Metabolic encephalopathy; Z79.4 Long term (current) use of insulin; I12.9 Hypertensive chronic kidney disease with stage 1 through stage 4 chronic kidney disease, or unspecified chronic kidney disease; N18.9 Chronic kidney disease, unspecified; N39.0 Urinary tract infection, site not specified